=== PATIENT | female | born 1940 | race Caucasian/White ===

== ENCOUNTER 2017-05-15 09:59 | Emergency (ER) | payer OTHER ==
[2017-05-15 10:05] VITALS: BMI 20.7
[2017-05-15 10:35] LABS: BASOPHILS % (AUTO) 0.5 % (0.2-1.0); EOSINOPHILS # (AUTO) 0.1 x10^3/uL (0.0-0.2); EOSINOPHILS % (AUTO) 1.2 % (0.9-2.9); HEMATOCRIT 34.3 % (36.0-47.0); HEMOGLOBIN 11.5 g/dL (12.0-16.0); LYMPHOCYTES # (AUTO) 0.9 X10^3/uL (1.3-2.9); LYMPHOCYTES % (AUTO) 10.6 % (21.0-51.0); MEAN CORPUSCULAR HEMOGLOBIN 29.8 pg (27.0-34.0); MEAN CORPUSCULAR HGB CONC 33.7 g/dL (33.0-35.0); MEAN CORPUSCULAR VOLUME 88.6 fL (80.0-100.0); MEAN PLATELET VOLUME 9.3 fL (7.4-11.0); MONOCYTES # (AUTO) 0.6 x10^3/uL (0.3-0.8); MONOCYTES % (AUTO) 6.6 % (0.0-13.0); NEUTROPHILS # (AUTO) 7.1 x10^3/uL (2.2-4.8); NEUTROPHILS % (AUTO) 81.1 % (42.0-75.0); PLATELET COUNT 180 X10^3/uL (150.0-450.0); RED BLOOD COUNT 3.86 X10^6/uL (3.5-5.4); RED CELL DISTRIBUTION WIDTH 13.4 % (11.6-16.5); WHITE BLOOD COUNT 8.7 X10^3/uL (3.6-10.0)
[2017-05-15 10:43] LABS: ALANINE AMINOTRANSFERASE 8 Units/L (12-78); ALBUMIN 3.4 g/dL (3.4-5.0); ALKALINE PHOSPHATASE 62 Units/L (46-116); ASPARTATE AMINO TRANSFERASE 18 Units/L (15-37); BLOOD UREA NITROGEN 22 mg/dL (7-18); CALCIUM 8.8 mg/dL (8.5-10.1); CHLORIDE 104 mmol/L (98-107); COR NA(FOR HYPERGLY) 140 mmol/L (136-145); CREATININE 1.29 mg/dL (0.55-1.02); GLUCOSE 115 mg/dL (65-99); SODIUM 140 mmol/L (136-145); eGFR BLACK RACES 52 (>60); eGFR NON BLACK RACES 43 (>60)
--- NOTE | 2017-05-15 10:43 | DR.GENAD ---
HPI - PCP Primary Care Physician: DR. MCCRAY - Complaint/Symptoms Chief Complaint Doctors Comments: Right sided chest and abdominal pain after falling 2-3 times over the last 4 days. Chief Complaint:: EMS STATED THAT FAMILY CALLED THEM OUT TO PATIENT HAVING RIGHT LOWER ABD. PAIN. SHE HAS BEEN HAVING MULT. FALLS OVER THE LAST COUPLE OF DAYS AND HAVING BRUISING NOTED TO THE FACE AND SKIN TEARS NOTED OT ARMS. - Nurses notes reviewed Nurses Notes Review: Yes - Source History Provided: Family Member (Son, who sitas with her at night and witnessed 2 of her falls), EMS - Mode of Arrival Mode of Arrival: Stretcher - Timing Onset of Chief Complaint: 05/13/17 Came on: Gradually - Duration Duration: Intermittent Duration: Days (2-3 days) - Location Location: R chest wall and abdomen - Severity Severity: Moderate PMH - PMH Past Medical History: Yes Past Medical History: Dementia, Hypertension Past Medical History Comment: PARKINSON Past Surgical History: No Surgical History: No History Unable to Obtain Due To: Dementia - Family History History of Family Medical Conditions: Yes Family Medical History: Diabetes Mellitus, Cancer, Hypertension - Social History Does patient currently use any type of tobacco product: No Have you used tobacco products in the last 12 months: No Type of Tobacco Use: None Does any household member use tobacco: No Alcohol Use: None Do you use any recreational Drugs:: No Lives With: Family Lives Where: Home - infectious screening In the last 2 months have you had wt loss of >10#?: NO Have you had fever, night sweats or hemotysis?: No Have you traveled outside the country in the last 6 months?: No Isolation: Standard ROS - Review of Systems Eyes: No Symptoms Reported ENTM: No Symptoms Reported Respiratoy: No Symptoms Reported Cardiovascular: No Symptoms Reported, Chest Pain Gastrointestinal/Abdominal: Abdominal Pain Genitourinary: No Symptoms Reported Neurological: No Symptoms Reported Musculoskeletal: No Symptoms Reported Integumentary: Other (R arm skin tear after fall and nose contusion at the bridge after fall #2) Endocrine: No Symptoms Reported Psychiatric: Other (dementia) PE - Vital Signs Vitals: Temperature 98.0 F Pulse Rate [Left Brachial] 68 Pulse Rate 77 Respiratory Rate 20 Blood Pressure [Left Arm] 126/69 Blood Pressure 126/56 O2 Sat by Pulse Oximetry 96 - General Limitations: Other (dementia/med effect(xanax)) General Appearance: Alert, In No Apparent Distress - Head Head Exam: Other (contusion and edema of the bridge of the nose) - Eyes Eye exam: Normal Appearance - ENT ENT Exam: Normal Exam Nose Exam: Abrasion Mouth Exam: Normal Inspection Throat Exam: Normal Inspection - Chest Chest Inspection: Normal Inspection, Symmetric Chest Wall Rise - Respiratory Respiratory Exam: Normal Lung Sounds Bilat - Cardiovascular Cardiovascular Exam: Regular Rate, Normal Rhythm, Normal Heart Sounds - Abdominal Exam Abdominal Exam: Normal Inspection, Normal Bowel Sounds, Soft. negative: Distention, Tenderness, Guarding, Rebound, Rigidity, Hypoactive Bowel Sounds, Organomegaly, Trauma, Incision, Ascites, Mass, Bruit, Pulsatile Mass - Extremities Extremities Exam: Normal Inspection - Back Back Exam: Normal Inspection - Neurologic Neurological Exam: Alert, CN II-XII Intact. negative: Oriented X3 - Skin Skin Exam: Other (skin tears and contusions) ROR - Labs Reviewed Result Diagrams: 05/15/17 10:24 05/15/17 10:24 Laboratory: WBC 8.7 X10^3/uL (3.6-10.0) 05/15/17 10:24 RBC 3.86 X10^6/uL (3.5-5.4) 05/15/17 10:24 Hgb 11.5 g/dL (12.0-16.0) L 05/15/17 10:24 Hct 34.3 % (36.0-47.0) L 05/15/17 10:24 MCV 88.6 fL (80.0-100.0) 05/15/17 10:24 MCH 29.8 pg (27.0-34.0) 05/15/17 10:24 MCHC 33.7 g/dL (33.0-35.0) 05/15/17 10:24 RDW 13.4 % (11.6-16.5) 05/15/17 10:24 Plt Count 180 X10^3/uL (150.0-450.0) 05/15/17 10:24 MPV 9.3 fL (7.4-11.0) 05/15/17 10:24 Neut % 81.1 % (42.0-75.0) H 05/15/17 10:24 Lymph % 10.6 % (21.0-51.0) L 05/15/17 10:24 [place] % 6.6 % (0.0-13.0) 05/15/17 10:24 Eos % 1.2 % (0.9-2.9) 05/15/17 10:24 Baso % 0.5 % (0.2-1.0) 05/15/17 10:24 Neut # 7.1 x10^3/uL (2.2-4.8) H 05/15/17 10:24 Lymph # 0.9 X10^3/uL (1.3-2.9) L 05/15/17 10:24 [place] # 0.6 x10^3/uL (0.3-0.8) 05/15/17 10:24 Eos # 0.1 x10^3/uL (0.0-0.2) 05/15/17 10:24 Baso # 0.0 X10^3/uL (0.0-0.1) 05/15/17 10:24 Absolute Nucleated RBC 0.0 /100WBC 05/15/17 10:24 Sodium 140 mmol/L (136-145) 05/15/17 10:24 Corrected Sodium 140 mmol/L (136-145) 05/15/17 10:24 Potassium 3.9 mmol/L (3.5-5.1) 05/15/17 10:24 Chloride 104 mmol/L (98-107) 05/15/17 10:24 Carbon Dioxide 32.0 mmol/L (21-32) 05/15/17 10:24 BUN 22 mg/dL (7-18) H 05/15/17 10:24 Creatinine 1.29 mg/dL (0.55-1.02) H 05/15/17 10:24 Est GFR (MDRD) Af Amer 52 (>60) L 05/15/17 10:24 Est GFR (MDRD) Non-Af 43 (>60) L 05/15/17 10:24 Glucose 115 mg/dL (65-99) H 05/15/17 10:24 Calcium 8.8 mg/dL (8.5-10.1) 05/15/17 10:24 Corrected Calcium TNP 05/15/17 10:24 Total Bilirubin 0.60 mg/dL (0.2-1.0) 05/15/17 10:24 AST 18 Units/L (15-37) 05/15/17 10:24 ALT 8 Units/L (12-78) L 05/15/17 10:24 Alkaline Phosphatase 62 Units/L (46-116) 05/15/17 10:24 Total Protein 7.0 g/dL (6.4-8.2) 05/15/17 10:24 Albumin 3.4 g/dL (3.4-5.0) 05/15/17 10:24 Globulin 3.6 g/dL (2.5-4.5) 05/15/17 10:24 Albumin/Globulin Ratio 0.9 Ratio (1.1-2.1) L 05/15/17 10:24 Specimen Type Clean catch urine 05/15/17 11:53 Urine Color Yellow (YELLOW) 05/15/17 11:53 Urine Appearance Hazy (CLEAR) 05/15/17 11:53 Urine pH 6.0 (5.0 - 8.0) 05/15/17 11:53 Ur Specific [place] 1.015 (1.000-1.030) 05/15/17 11:53 Urine Protein 2+ (NEGATIVE) 05/15/17 11:53 Urine Glucose (UA) Negative (NEGATIVE) 05/15/17 11:53 Urine Ketones 1+ (NEGATIVE) 05/15/17 11:53 Urine Occult Blood 2+ (NEGATIVE) 05/15/17 11:53 Urine Nitrite Negative (NEGATIVE) 05/15/17 11:53 Urine Bilirubin Negative (NEGATIVE) 05/15/17 11:53 Urine Urobilinogen 1+ (NORMAL) 05/15/17 11:53 Ur Leukocyte Esterase 2+ (NEGATIVE) 05/15/17 11:53 Urine RBC 0-2 /HPF (NEGATIVE) 05/15/17 11:53 Urine WBC 5-6 /HPF (NEGATIVE) 05/15/17 11:53 Ur Squamous Epith Cells Rare /HPF (NEGATIVE) 05/15/17 11:53 Urine Bacteria Trace /HPF (NEGATIVE) 05/15/17 11:53 Ur Culture Indicated? No/not indicated 05/15/17 11:53 - Diagnosis Discharge Problem: Fall, Skin tear, Nasal contusion, Flank pain, Cystitis - Discharge Plan Condition: Stable Prescriptions: Ampicillin Trihydrate 500 mg PO QID #28 capsule - Follow ups/Referrals Follow ups/Referrals: Chalino Mccray [Primary Care Provider] - 3 days - Instructions Additional Instructions: Fall precautions.
--- NOTE | 2017-05-15 10:51 | CT ---
STUDY: CT HEAD WITHOUT CONTRAST HISTORY: Fall. Facial bruising. COMPARISON: Head CT dated September 06, 2016. TECHNIQUE: Multiple axial images of the head were obtained from the skull base to the vertex without administration of IV contrast. Automated exposure control (AEC) was utilized to adjust the MA and/o r kV. Findings: The sulci, cisterns and ventricles are prominent consistent with diffuse volume loss. There are scattered foci of low attenuation in the periventricular and subcortical white matter of b oth hemispheres. This is a nonspecific finding which likely represents microangiopathic change in a patient of this age. There is no evidence of acute territorial infarction, hemorrhage, mass, mass effect or midline shift . There are no abnormal extra-axial fluid collections. There is no evidence of acute osseous abnormality or significant soft tissue swelling. IMPRESSION: 1. No evidence of acute intracranial abnormality. 2. Nonspecific white matter change and volume loss as described. 3. If there remains strong clinical concern for acute intracranial abnormality, then an MRI examinat ion should be considered for further evaluation. Reported By:
--- NOTE | 2017-05-15 10:52 | CT ---
HISTORY: Fall. Study: CT facial bones Comparison: None. Technique: Multiple axial images of the facial structures were obtained from the mandible to superio r portions of the orbits. Dose reduction techniques including Automated Exposure Control (AEC) and adjustment of mA and kV were utilized. Findings: Nasal bone fractures that appear remote. The visualized paranasal sinuses appear unremarkable withou t significant mucosal thickening or air-fluid levels. The mandible as well as the surrounding bony structures appear unremarkable. The visualized portions of the orbits as well as the globe within t he right and left orbit are unremarkable in their CT appearance. IMPRESSION: No acute osseous abnormality. Reported By:
--- NOTE | 2017-05-15 11:22 | CT ---
HISTORY: Injury, fall, rib pain Study: CT chest abdomen pelvis without contrast Comparison: None Technique: Axial non contrast images with coronal and sagittal reformats. Dose reduction procedures were used with MA/kv adjusted for body size. This examination is limited due to the lack of intraven ous contrast which limits the evaluation of the aorta, solid abdominal organs, and evaluation for ac tive hemorrhage. Findings: CT chest without contrast:: Examination of the mediastinum demonstrated no evidence for mediastinal hematoma. Evaluation of the aorta is limited due to the lack of intravenous contrast. Mild calcific atherosclerotic changes present. No mediastinal masses, lymphadenopathy, or hilar lymphadenopathy is identified. A small right pleural effusion is present. No chest wall or axillary abnormality is elpidio ntified. The ribs appear intact as does the thoracic spine and sternum. Examination of the lung fiel ds demonstrated no evidence for pulmonary contusion or pneumothorax. There is some subsegmental atel ectasis in the right upper lobe. No significant nodules, alveolar infiltrates, masses, peribronchial thickening, or bronchiectasis is identified. CT abdomen pelvis without contrast: The liver, spleen, adrenal glands, and pancreas are within raisa l limits to the limitations of an unenhanced examination only. The gallbladder is mildly distended. Cholelithiasis is present. Benign calcified splenic granulomas are incidentally noted. The kidneys a re unobstructed and demonstrate no evidence for injury to the limitations of an unenhanced examinati on. No stones are identified no ureteral calculi are identified. There is no evidence for intraperit morgan air. The abdominal aorta demonstrates mild calcific atherosclerotic change but no dilatation. No intraperitoneal or retroperitoneal lymphadenopathy of significance is identified. The appendix an d colon appear within normal limits. There is no evidence for small bowel wall edema. There is some fluid of low attenuation within the right side of the pelvis. This could be physiologic however clin ical correlation is recommended in order to exclude findings that might be suggestive of a bowel inj ury. The bladder appears intact. No pelvic masses are identified. No pelvic fractures are identified . The lumbar spine appears intact. IMPRESSION: Limited examination for the reason noted above No definite evidence for acute traumatic abnormality in the chest to the limitations of an unenhance d examination. No definite evidence for solid organ injury in the abdomen to the limitations of an unenhanced exami nation. Small amount of low attenuation fluid in the right hemipelvis likely physiologic, however, clinical correlation is recommended in order to exclude clinical findings suggestive of a bowel injury. Reported By:
[2017-05-15] MEDS ORDERED: NS 1/2 1000 ML IV 500 ML IV ONE (11:34)
[2017-05-15] MEDS ORDERED: NS 1/2 1000 ML IV 1,000 ML IV ONE (11:46)
[2017-05-15 12:02] LABS: BILIRUBIN,URINE NEGATIVE (NEGATIVE); BLOOD/HEMOGLOBIN,URINE 2+ (NEGATIVE); GLUCOSE, URINE NEGATIVE (NEGATIVE); KETONES,URINE 1+ (NEGATIVE); LEUKOCYTE ESTERASE ,URINE 2+ (NEGATIVE); NITRITES,URINE NEGATIVE (NEGATIVE); PROTEIN,URINE 2+ (NEGATIVE); UROBILINOGEN,URINE 1+ (NORMAL)
[2017-05-15 12:10] LABS: APPEARANCE,URINE HAZY (CLEAR); BACTERIA,URINE TRACE /HPF (NEGATIVE); COLOR,URINE YELLOW (YELLOW); RBC,URINE 0-2 /HPF (NEGATIVE); SQUAMOUS EPITHELIAL CELL,UR RARE /HPF (NEGATIVE)
[2017-05-15 12:15] VITALS: BP 126/69
[2017-05-15] MEDS ORDERED: ROCEPHIN VIAL 1 GM 1 GM in NS 50 ML IV + SPIKE MINIBAG* 50 ML IV ONE (12:22)
[2017-05-15] MEDS ORDERED: NS 50 ML IV + SPIKE MINIBAG* 50 ML IV ONE (12:24)
[2017-05-15] MEDS ORDERED: ROCEPHIN VIAL 1 GM ONE (12:24)
== END 2017-05-15 13:15 | disposition home or self-care (01) ==
LOC: ER 10:02
DX: S41.111A Laceration without foreign body of right upper arm, initial encounter (principal); S00.33XA Contusion of nose, initial encounter; R10.84 Generalized abdominal pain; N30.90 Cystitis, unspecified without hematuria; W19.XXXA Unspecified fall, initial encounter
CPT/HCPCS: 36415; 51701; 70450; 70486; 71250; 74150; 80053; 81001; 85025; 96365; 96374; 99282; 99283; A4222; J0696

== ENCOUNTER 2019-11-25 10:09 | Inpatient (IN) ==
[2019-11-25 10:21] VITALS: BMI 25.4
--- NOTE | 2019-11-25 10:50 | DR.URINEF ---
HPI - Time Seen Time seen: 10:45 - PCP Primary Care Physician: DR. MCCRAY - Complaint Chief Complaint:: FAMILY STATES THEY THINK SHE HAS A BLADDER INFECTION OR UTI. STATES HER URINE HAS A RED TINT TO IT AND THERE IS AN ODOR TO HER URINE. STATES 2 DAYS AGO PATIENT WAS LEANING TO ONE SIDE AND WASN'T HARDLY SPEAKING. STATES SHE IS DOING BETTER TODAY. FAMILY STATES PT SHE IS COMPLAINING OF PAIN ON HER LEFT LOWER SIDE OF HER BACK. SHE HAS BEEN MORE LETHERGIC THE LAST FEW DAYS AND NOT EATING WELL. - Reviewed Nurses Notes Reviewed: Yes - Source History Provided: Patient - Mode of Arrival Mode of Arrival: Wheelchair - Timing Onset of Chief Complaint: 11/22/19 - Duration How lon Duration: Days (mORE LEFTHARGIC, DARK URINE) PMH - PMH Past Medical History: Yes Past Medical History: Hypertension, Dementia Past Medical History Comment: PARKINSON'S Past Surgical History: No Surgical History: No History - Family History History of Family Medical Conditions: Yes Family Medical History: Diabetes Mellitus, Cancer, Hypertension - Social History Does patient currently use any type of tobacco product: No Have you used tobacco products in the last 12 months: No Type of Tobacco Use: None Does any household member use tobacco: No Alcohol Use: None Do you use any recreational Drugs:: No Lives With: Family Lives Where: Home - infectious screening Have you traveled outside the country in the last 6 months?: No Isolation: Standard ROS - Review of Systems Constitutional: Weakness ENTM: Tooth/Dental Pain (POOR DENTITION) Respiratoy: No Symptoms Reported Cardiovascular: No Symptoms Reported Gastrointestinal/Abdominal: No Symptoms Reported Genitourinary: Other (DARK ODIFEROUS URINE) Neurological: Weakness, Speech Problem (CHRONIC ON SPEECH THERAPY) PE - General General Appearance: Lethargic - Head Head Exam: Normal Inspection - Eyes Eye exam: Normal Appearance, EOMI - ENT ENT Exam: Other (POOR DENTITION ONLY FEW TEETH REMAIN) - Neck Neck Exam: Normal Inspection, Full ROM, Trachea Midline - Respiratory Respiratory Exam: Normal Lung Sounds Bilat - Cardiovascular Cardiovascular Exam: Regular Rate - Abdominal Exam Abdominal Exam: Normal Inspection, Normal Bowel Sounds, Soft - Rectal Rectal Exam: Deferred - Extremities Extremities Exam: Normal Inspection - Back Back Exam: Normal Inspection - Neurologic Neurological Exam: Alert, Oriented X3, CN II-XII Intact - Psychiatric Psychiatric Exam: Depressed - Skin Skin Exam: Intact, Normal Color - Vital Signs Vitals: Temperature 97.4 F Pulse Rate 74 Respiratory Rate 16 Blood Pressure [Left Arm] 118/67 Blood Pressure 88/49 O2 Sat by Pulse Oximetry 96 Course - Consultation Called: 12:55 Call Returned: 13:10 Consultation Comments: case discussed with Cheri Penny NE[facility] BLOWER, admit for antibiotics ROR - Labs Reviewed Result Diagrams: 11/25/19 11:02 11/25/19 17:09 - XRAY XRAY Interpreted by: Radiologist XRAY Findings: chest: scarring present , no change from previous CT scan per radiology - Labs Reviewed Laboratory: WBC 15.0 X10^3/uL (3.6-10.0) H 11/25/19 11:02 RBC 3.72 X10^6/uL (3.5-5.4) 11/25/19 11:02 Hgb 11.4 g/dL (12.0-16.0) L 11/25/19 11:02 Hct 34.1 % (36.0-47.0) L 11/25/19 11:02 MCV 91.7 fL (80.0-100.0) 11/25/19 11:02 MCH 30.8 pg (27.0-34.0) 11/25/19 11:02 MCHC 33.6 g/dL (33.0-35.0) 11/25/19 11:02 RDW 12.7 % (11.6-16.5) 11/25/19 11:02 Plt Count 193 X10^3/uL (150.0-450.0) 11/25/19 11:02 MPV 9.0 fL (7.4-11.0) 11/25/19 11:02 Neut % (Auto) 82.6 % (42.0-75.0) H 11/25/19 11:02 Lymph % (Auto) 10.1 % (21.0-51.0) L 11/25/19 11:02 [place] % (Auto) 6.3 % (0.0-13.0) 11/25/19 11:02 Eos % (Auto) 0.7 % (0.9-2.9) L 11/25/19 11:02 Baso % (Auto) 0.3 % (0.2-1.0) 11/25/19 11:02 Neut # (Auto) 12.4 x10^3/uL (2.2-4.8) H 11/25/19 11:02 Lymph # (Auto) 1.5 X10^3/uL (1.3-2.9) 11/25/19 11:02 [place] # (Auto) 0.9 x10^3/uL (0.3-0.8) H 11/25/19 11:02 Eos # (Auto) 0.1 x10^3/uL (0.0-0.2) 11/25/19 11:02 Baso # (Auto) 0.1 X10^3/uL (0.0-0.1) 11/25/19 11:02 Absolute Nucleated RBC 0.0 /100WBC 11/25/19 11:02 Sodium 145 mmol/L (136-145) 11/25/19 11:02 Corrected Sodium 146 mmol/L (136-145) H 11/25/19 11:02 Potassium 3.0 mmol/L (3.5-5.1) L* 11/25/19 11:02 Chloride 108 mmol/L (98-107) H 11/25/19 11:02 Carbon Dioxide 27.6 mmol/L (21-32) 11/25/19 11:02 BUN 28 mg/dL (7-18) H 11/25/19 11:02 Creatinine 1.34 mg/dL (0.55-1.02) H 11/25/19 11:02 Est GFR (MDRD) Af Amer 49 (>60) L 11/25/19 11:02 Est GFR (MDRD) Non-Af 41 (>60) L 11/25/19 11:02 Glucose 134 mg/dL (65-99) H 11/25/19 11:02 Lactic Acid 0.9 mmol/L (0.4-2.0) 11/25/19 12:05 Calcium 9.4 mg/dL (8.5-10.1) 11/25/19 11:02 Corrected Calcium TNP 11/25/19 11:02 Total Bilirubin 0.30 mg/dL (0.2-1.0) 11/25/19 11:02 AST 32 Units/L (15-37) 11/25/19 11:02 ALT 23 Units/L (12-78) 11/25/19 11:02 Alkaline Phosphatase 67 Units/L (46-116) 11/25/19 11:02 Total Protein 7.2 g/dL (6.4-8.2) 11/25/19 11:02 Albumin 3.6 g/dL (3.4-5.0) 11/25/19 11:02 Globulin 3.6 g/dL (2.5-4.5) 11/25/19 11:02 Albumin/Globulin Ratio 1.0 Ratio (1.1-2.1) L 11/25/19 11:02 Specimen Type Catherized urine 11/25/19 11:24 Urine Color Yellow (YELLOW) 11/25/19 11:24 Urine Appearance Cloudy (CLEAR) 11/25/19 11:24 Urine pH 6.0 (5.0 - 8.0) 11/25/19 11:24 Ur Specific [place] 1.015 (1.000-1.030) 11/25/19 11:24 Urine Protein 2+ (NEGATIVE) 11/25/19 11:24 Urine Glucose (UA) Negative (NEGATIVE) 11/25/19 11:24 Urine Ketones Negative (NEGATIVE) 11/25/19 11:24 Urine Occult Blood 4+ (NEGATIVE) 11/25/19 11:24 Urine Nitrite Negative (NEGATIVE) 11/25/19 11:24 Urine Bilirubin Negative (NEGATIVE) 11/25/19 11:24 Urine Urobilinogen Normal (NORMAL) 11/25/19 11:24 Ur Leukocyte Esterase 3+ (NEGATIVE) 11/25/19 11:24 Urine RBC 20-30 /HPF (0-3) A 11/25/19 11:24 Urine WBC Tntc /HPF (0-5) A 11/25/19 11:24 Ur Squamous Epith Cells Few /HPF (NEGATIVE) 11/25/19 11:24 Urine Bacteria 2+ /HPF (NEGATIVE) 11/25/19 11:24 Ur Culture Indicated? Yes/culture set up 11/25/19 11:24 Opioid - Opioid Risk Tool Age (Mohsen box if 16-45): No Total: 0 Total Score Risk Category: Low Risk - Diagnosis Discharge Problem: Hypokalemia Urinary tract infection Qualifiers: Urinary tract infection type: acute cystitis Hematuria presence: with hematuria Qualified Code(s): N30.01 - Acute cystitis with hematuria - Discharge Plan Disposition: ADMITTED INPATIENT Condition: Stable
[2019-11-25] MEDS ORDERED: NS 500 ML IV 1,000 ML IV ONE (10:52)
[2019-11-25] MEDS ORDERED: NS 500 ML IV 500 ML IV ONE ×2 (10:54→11:37)
[2019-11-25 11:11] LABS: BASOPHILS # (AUTO) 0.1 X10^3/uL (0.0-0.1); BASOPHILS % (AUTO) 0.3 % (0.2-1.0); EOSINOPHILS # (AUTO) 0.1 x10^3/uL (0.0-0.2); EOSINOPHILS % (AUTO) 0.7 % (0.9-2.9); HEMATOCRIT 34.1 % (36.0-47.0); HEMOGLOBIN 11.4 g/dL (12.0-16.0); LYMPHOCYTES # (AUTO) 1.5 X10^3/uL (1.3-2.9); LYMPHOCYTES % (AUTO) 10.1 % (21.0-51.0); MEAN CORPUSCULAR HEMOGLOBIN 30.8 pg (27.0-34.0); MEAN CORPUSCULAR HGB CONC 33.6 g/dL (33.0-35.0); MEAN CORPUSCULAR VOLUME 91.7 fL (80.0-100.0); MONOCYTES # (AUTO) 0.9 x10^3/uL (0.3-0.8); MONOCYTES % (AUTO) 6.3 % (0.0-13.0); NEUTROPHILS # (AUTO) 12.4 x10^3/uL (2.2-4.8); NEUTROPHILS % (AUTO) 82.6 % (42.0-75.0); PLATELET COUNT 193 X10^3/uL (150.0-450.0); RED BLOOD COUNT 3.72 X10^6/uL (3.5-5.4); RED CELL DISTRIBUTION WIDTH 12.7 % (11.6-16.5)
[2019-11-25 11:21] LABS: BLOOD UREA NITROGEN 28 mg/dL (7-18); CALCIUM 9.4 mg/dL (8.5-10.1); CARBON DIOXIDE 27.6 mmol/L (21-32); CHLORIDE 108 mmol/L (98-107); COR NA(FOR HYPERGLY) 146 mmol/L (136-145); CREATININE 1.34 mg/dL (0.55-1.02); SODIUM 145 mmol/L (136-145); eGFR NON BLACK RACES 41 (>60)
[2019-11-25 11:25] LABS: ALANINE AMINOTRANSFERASE 23 Units/L (12-78); ALBUMIN 3.6 g/dL (3.4-5.0); ALKALINE PHOSPHATASE 67 Units/L (46-116); ASPARTATE AMINO TRANSFERASE 32 Units/L (15-37); TOTAL PROTEIN 7.2 g/dL (6.4-8.2)
[2019-11-25 11:41] LABS: BILIRUBIN,URINE NEGATIVE (NEGATIVE); BLOOD/HEMOGLOBIN,URINE 4+ (NEGATIVE); GLUCOSE, URINE NEGATIVE (NEGATIVE); KETONES,URINE NEGATIVE (NEGATIVE); LEUKOCYTE ESTERASE ,URINE 3+ (NEGATIVE); NITRITES,URINE NEGATIVE (NEGATIVE); PROTEIN,URINE 2+ (NEGATIVE); UROBILINOGEN,URINE NORMAL (NORMAL)
[2019-11-25 11:49] LABS: APPEARANCE,URINE CLOUDY (CLEAR); BACTERIA,URINE 2+ /HPF (NEGATIVE); COLOR,URINE YELLOW (YELLOW); RBC,URINE 20-30 /HPF (0-3); SQUAMOUS EPITHELIAL CELL,UR FEW /HPF (NEGATIVE)
[2019-11-25] MEDS ORDERED: POTASSIUM CHLORIDE LIQ 20 MEQ UDC PO ONE (11:49)
--- NOTE | 2019-11-25 11:54 | RAD ---
HISTORYCOUGHSTUDYCHEST, 1 VIEWCOMPARISONCT scan of the chest done 05/15/2017.FINDINGSThere is left right tracheal deviation secondary to aortic uncoiling. The heart size is upper normal. Left lung is clear. There is chronic thickening of the region of the right minor fissure, noted on the prior CT. Some scarring in the right lower lobe is appreciated along this region. No evidence of consolidation, CHF, pleural fluid or pneumothorax is seen. Osseous structures are intact.IMPRESSIONStable scarring along the right minor fissure in right lower lobe regions, unchanged from the prior chest CT. No evidence of acute infiltrate, CHF or pleural fluid is seen.Hypertensive configuration.Electronically signed by: JOE CORTEZ (Nov 25, 2019 11:52:20)
[2019-11-25] MEDS ORDERED: POTASSIUM CHLORIDE LIQ 20 MEQ UDC ONE (12:30)
[2019-11-25] MEDS ORDERED: LEVAQUIN PREMIX IV 750 MG 750 MG/150 ML BAG IV ONE (12:31)
[2019-11-25] MEDS: LEVAQUIN PREMIX IV 750 MG 750 MG/150 ML BAG IV SCH (12:35)
[2019-11-25] MEDS ORDERED: TYLENOL 500 MG TAB EXTRA STRENGTH PO PRN (13:21)
[2019-11-25] MEDS ORDERED: NS 1000 ML 1,000 ML ONE (14:32)
[2019-11-25] MEDS: NS 1000 ML 1,000 ML IV SCH ×2 (14:36→21:41)
[2019-11-25 18:38] LABS: CRYPTOSPORIDIUM PARVUM ANTIGEN NEGATIVE (NEGATIVE); GIARDIA LAMBLIA ANTIGEN NEGATIVE (NEGATIVE)
[2019-11-25] MEDS: K-DUR TAB 20 MEQ PO SCH (21:41)
[2019-11-26 05:33] LABS: BASOPHILS % (AUTO) 0.3 % (0.2-1.0); EOSINOPHILS # (AUTO) 0.1 x10^3/uL (0.0-0.2); HEMATOCRIT 26.9 % (36.0-47.0); LYMPHOCYTES # (AUTO) 1.8 X10^3/uL (1.3-2.9); LYMPHOCYTES % (AUTO) 19.1 % (21.0-51.0); MEAN CORPUSCULAR HEMOGLOBIN 32.3 pg (27.0-34.0); MEAN CORPUSCULAR HGB CONC 34.9 g/dL (33.0-35.0); MEAN CORPUSCULAR VOLUME 92.5 fL (80.0-100.0); MEAN PLATELET VOLUME 9.7 fL (7.4-11.0); MONOCYTES # (AUTO) 0.6 x10^3/uL (0.3-0.8); MONOCYTES % (AUTO) 6.7 % (0.0-13.0); NEUTROPHILS # (AUTO) 6.8 x10^3/uL (2.2-4.8); NEUTROPHILS % (AUTO) 72.9 % (42.0-75.0); PLATELET COUNT 149 X10^3/uL (150.0-450.0); RED BLOOD COUNT 2.91 X10^6/uL (3.5-5.4); RED CELL DISTRIBUTION WIDTH 13.2 % (11.6-16.5); WHITE BLOOD COUNT 9.4 X10^3/uL (3.6-10.0)
[2019-11-26 05:36] LABS: ALANINE AMINOTRANSFERASE 24 Units/L (12-78); ALBUMIN 2.8 g/dL (3.4-5.0); ALKALINE PHOSPHATASE 52 Units/L (46-116); ASPARTATE AMINO TRANSFERASE 23 Units/L (15-37); BLOOD UREA NITROGEN 21 mg/dL (7-18); CALCIUM 8.2 mg/dL (8.5-10.1); CARBON DIOXIDE 24.1 mmol/L (21-32); CHLORIDE 111 mmol/L (98-107); COR CA(FOR HYPOALB) 9.2 mg/dL (8.5-10.1); SODIUM 144 mmol/L (136-145); TOTAL PROTEIN 5.8 g/dL (6.4-8.2); eGFR NON BLACK RACES 57 (>60)
[2019-11-26 05:51] LABS: HEMOGLOBIN 9.4 g/dL (12.0-16.0)
[2019-11-26] MEDS: NS 1000 ML 1,000 ML IV SCH ×3 (06:28→21:29)
[2019-11-26] MEDS ORDERED: POTASSIUM CHL 40 MEQ/NS 0.45% 500 ML IV PRN (06:31)
[2019-11-26] MEDS ORDERED: POTASSIUM CHLORIDE LIQ 20 MEQ UDC PO PRN (06:31)
[2019-11-26] MEDS ORDERED: KLOR-CON PO PRN (06:31)
[2019-11-26] MEDS ORDERED: MICRO K EXTEN CAP 10 MEQ PO PRN (06:31)
[2019-11-26] MEDS ORDERED: K-RIDER 10 MEQ/NS 100 ML 10 MEQ/100 ML BAG IV PRN (06:31)
[2019-11-26] MEDS ORDERED: POTASSIUM CHL 60 MEQ/NS 0.45% 500 ML IV PRN (06:31)
[2019-11-26] MEDS ORDERED: K-DUR TAB 20 MEQ PO PRN (06:31)
--- NOTE | 2019-11-26 08:30 | DR.H&P ---
H&P - History & Physical for Day of: H&P Date: 11/25/19 - Chief Complaint Chief Complaint: DARK, FOUL SMELLING URINE, BACK PAIN, WELL DIARRHEA - History of Present Illness History of Present Illness: MS. GROVES IS A 79 YEAR OLD PATIENT OF OURS WHO PRESENTED TO THE ER WITH COMPLAINTS OF DARK, FOUL SMELLING URINE, LEFT SIDE LOWER BACK PAIN, AND DIARRHEA. FAMILY REPORTS THAT SHE HAS BEEN LETHARGIC FOR THE PAST TWO DAYS AND HAS NOT BEEN EATING. ON ARRIVAL, VITALS WERE 97.4-97-16-100%-93/54. LABS WERE OBTAINED. ABNORMAL LAB VALUES INCLUDE THE FOLLOWING: WBC 15.0, HGB 11.4, HCT 34.1, SODIUM 146, POTASSIUM 3.0, CHLORIDE 108, BUN 28, CREATININE 1.34, GLUCOSE 134. URINALYSIS REVEALED: WBC TNTC, RBC 20-30, LEUKOCYTES 3+, BACTERIA 2+. STOOL IS POSITIVE FOR WHITE CELLS. A STOOL CULTURE AND URINE CULTURE PENDING. A CHEST XRAY WAS OBTAINED AND REVEALED: Stable scarring along the right minor fissure in right lower lobe regions, unchanged from the prior chest CT. No evidence of acute infiltrate, CHF or pleural fluid is seen. Hypertensive configuration. SHE WAS GIVEN A NORMAL SALINE BOLUS AND POTASSIUM 20MEQ X 1 DOSE. SHE WAS ADMITTED FOR FURTHER EVALUATION AND TREATMENT OF A URINARY TRACT INFECTION AND HYPOKALEMIA. SHE WAS STARTED ON NORMAL SALINE AT 125ML/HR, LEVAQUIN 750MG IV DAILY, AND THE POTASSIUM AND MAGNESIUM PROTOCOLS. WE PLAN TO FOLLOW UP WITH AM LABS AND CONTINUE TO MONITOR. - Past Medical History Past Medical History: Hypertension, Dementia - Past Surgical History Surgical History: No History - Family History Family Medical History: Diabetes Mellitus, Cancer, Hypertension - Social History Does patient currently use any type of tobacco product: No Have you used tobacco products in the last 12 months: No Type of Tobacco Use: None Does any household member use tobacco: No Alcohol Use: None Drug Use: None Prescription drug monitoring program results: PDMP was not reviewed - Medications Home Medications: INK Allergy (Uncoded 07/02/15 09:16) CONTINUE taking the following medications carbidopa-levodopa [Sinemet] 1 tab PO BID 11/25/19 [History] fluoxetine 20 mg PO QAM 11/25/19 [History] levothyroxine 50 mcg PO DAILY 01/16/20 [History] lisinopril-hydrochlorothiazide 1 tab PO DAILY 11/25/19 [History] megestrol 600 mg PO BID 11/25/19 [History] pravastatin 40 mg PO QHS 11/25/19 [History] ranitidine HCl 300 mg PO QHS 11/25/19 [History] temazepam [Restoril] 15 mg PO QHS PRN 11/25/19 [History] - Review of Systems Constitutional: See HPI, Weakness, Malaise Eyes: No Symptoms Reported ENT: No Symptoms Reported Respiratory: No Symptoms Reported Cardiovascular: No Symptoms Reported Gastrointestinal: Abdominal Pain Genitourinary: No Symptoms Reported Musculoskeletal: No Symptoms Reported Skin: No Symptoms Reported Neurological: Weakness, Confusion - Physical Exam Vital Signs: Temperature 98.9 F Pulse Rate [Left Radial] 81 Pulse Rate 96 Respiratory Rate 22 Blood Pressure [Left Arm] 122/58 Blood Pressure 94/52 O2 Sat by Pulse Oximetry 97 Oriented: Not Oriented Eyes: Normal Ear: Normal Nose: Normal Throat: Normal Respiratory: Diminished Throughout Cardiovascular: Normal. negative: S3, S4, Murmur : Normal Auscultation: Bowel Sounds: Normal Palpation: Normal Tenderness: Suprapubic Skin: Normal Musculoskeletal: Normal Psychiatric: Normal Mood Description: Calm Affect: Normal Speech Pattern: Clear - Assessment/Plan (1) Urinary tract infection Qualifiers: Urinary tract infection type: acute cystitis Hematuria presence: with hematuria Qualified Code(s): N30.01 - Acute cystitis with hematuria Status: Acute Plan: NORMAL SALINE AT 125ML/HR, CONTINUE TO MONITOR (2) Hypokalemia Status: Acute Plan: POTASSIUM PROTOCOL, CONTINUE TO MONITOR (3) Hypomagnesemia Status: Acute Plan: MAGNESIUM PROTOCOL, CONTINUE TO MONITOR - Allergies Allergies/Adverse Reactions: Allergies Allergy/AdvReac Type Severity Reaction Status Date / Time INK Allergy Uncoded 07/02/15 09:16
[2019-11-26] MEDS ORDERED: LEVAQUIN PREMIX IV 750 MG 750 MG/150 ML BAG IV SCH (09:00)
[2019-11-26] MEDS: LEVAQUIN PREMIX IV 750 MG 750 MG/150 ML BAG IV SCH (09:09)
[2019-11-26] MEDS: K-DUR TAB 20 MEQ PO SCH ×2 (09:09→20:32)
[2019-11-26] MEDS: LOVENOX INJ 40 MG SYR SC SCH (10:51)
[2019-11-26] MEDS: SYNTHROID 50 mcg TAB PO SCH (11:25)
[2019-11-26] MEDS: SINEMET (PLAIN) 25/250 MG PO SCH ×2 (11:25→20:32)
[2019-11-26] MEDS: MEGACE ORAL SUSP 400 MG/10 ML PO SCH (17:30)
[2019-11-26] MEDS: PRAVACHOL PO SCH (20:32)
[2019-11-26] MEDS: PEPCID 20 MG IV PREMIX IV SCH (20:33)
[2019-11-27] MEDS: RESTORIL CAP 15 MG PO PRN ×2 (00:57→20:30)
[2019-11-27] MEDS: NS 1000 ML 1,000 ML IV SCH ×3 (05:47→21:14)
[2019-11-27] MEDS: MEGACE ORAL SUSP 400 MG/10 ML PO SCH ×2 (05:47→16:45)
[2019-11-27 06:06] LABS: BASOPHILS % (AUTO) 0.6 % (0.2-1.0); EOSINOPHILS # (AUTO) 0.1 x10^3/uL (0.0-0.2); EOSINOPHILS % (AUTO) 0.8 % (0.9-2.9); HEMATOCRIT 27.5 % (36.0-47.0); HEMOGLOBIN 9.5 g/dL (12.0-16.0); LYMPHOCYTES # (AUTO) 1.4 X10^3/uL (1.3-2.9); LYMPHOCYTES % (AUTO) 18.5 % (21.0-51.0); MEAN CORPUSCULAR HEMOGLOBIN 31.6 pg (27.0-34.0); MEAN CORPUSCULAR HGB CONC 34.5 g/dL (33.0-35.0); MEAN CORPUSCULAR VOLUME 91.7 fL (80.0-100.0); MEAN PLATELET VOLUME 9.5 fL (7.4-11.0); MONOCYTES # (AUTO) 0.4 x10^3/uL (0.3-0.8); NEUTROPHILS # (AUTO) 5.6 x10^3/uL (2.2-4.8); NEUTROPHILS % (AUTO) 74.1 % (42.0-75.0); PLATELET COUNT 158 X10^3/uL (150.0-450.0); RED BLOOD COUNT 2.99 X10^6/uL (3.5-5.4); RED CELL DISTRIBUTION WIDTH 13.1 % (11.6-16.5); WHITE BLOOD COUNT 7.5 X10^3/uL (3.6-10.0)
[2019-11-27 06:29] LABS: ALANINE AMINOTRANSFERASE 9 Units/L (12-78); ALBUMIN 2.7 g/dL (3.4-5.0); ALKALINE PHOSPHATASE 50 Units/L (46-116); ASPARTATE AMINO TRANSFERASE 21 Units/L (15-37); BLOOD UREA NITROGEN 16 mg/dL (7-18); CALCIUM 8.2 mg/dL (8.5-10.1); CHLORIDE 110 mmol/L (98-107); COR CA(FOR HYPOALB) 9.2 mg/dL (8.5-10.1); CREATININE 1.01 mg/dL (0.55-1.02); MAGNESIUM 1.6 mg/dL (1.7-2.9); SODIUM 142 mmol/L (136-145); TOTAL PROTEIN 5.8 g/dL (6.4-8.2); eGFR NON BLACK RACES 56 (>60)
[2019-11-27] MEDS: PEPCID 20 MG IV PREMIX IV SCH ×2 (08:45→20:17)
[2019-11-27] MEDS: SINEMET (PLAIN) 25/250 MG PO SCH ×3 (08:45→20:17)
[2019-11-27] MEDS: SYNTHROID 50 mcg TAB PO SCH ×2 (08:46→08:56)
[2019-11-27] MEDS: K-DUR TAB 20 MEQ PO SCH ×3 (08:46→20:16)
[2019-11-27] MEDS: LOVENOX INJ 40 MG SYR SC SCH (08:46)
[2019-11-27] MEDS: PROzac PO SCH ×2 (08:46→08:56)
[2019-11-27] MEDS: LEVAQUIN PREMIX IV 750 MG 750 MG/150 ML BAG IV SCH (09:43)
[2019-11-27] MEDS: MAGNESIUM SULFATE 1 GRAM/100 mL PREMIX 1 GM/100 ML BAG IV PRN (12:40)
[2019-11-27] MEDS: PRAVACHOL PO SCH (20:17)
--- NOTE | 2019-11-27 22:10 | PCM.PROG ---
Progress Note - Progress Note for Day of Date of Exam: 11/27/19 - Subjective Subjective: IS BEING TREATED FOR A URINARY TRACT INFECTION, HYPOKALEMIA, AND HYPOMAGNESEMIA. TODAY, SHE IS LYING IN BED WITH EYES CLOSED ON MORNING ROUNDS. SHE AWAKENS TO VERBAL STIMULI, BUT IS DISORIENTED. ON EXAMINATION, HEART IS REGULAR IN RATE AND RHYTHM. BILATERAL LUNGS ARE NOTED WITH DIMINISHED LUNG SOUNDS THROUGHOUT. ABDOMEN IS ROUND, SOFT, AND NON-TENDER WITH NORMAL BOWEL SOUNDS NOTED IN ALL QUADRANTS. HER VITALS THIS MORNING ARE: 98.1-88-25-98%-119/67. LABS WERE OBTAINED. ABNORMAL LAB VALUES INCLUDE THE FOLLOWING: RBC 2.99, HGB 9.5, HCT 27.5, CHLORIDE 110, CALCIUM 8.2, MAGNESIUM 1. 6, ALT 9, TOTAL PROTEIN 5.8, ALBUMIN 2.7. URINE CULTURE REPORTS GROWTH OF KLEBSIELLA PNEUMONIAE. STOOL CULTURE IS PENDING. SHE IS CURRENTLY RECEIVING NORMAL SALINE AT 125ML/HR, IV LEVAQUIN, IV PEPCID, THE POTASSIUM AND MAGNESIUM PROTOCOLS, AND HOME MEDICATIONS WERE RESUMED. WE WILL CONTINUE WITH CURRENT PLAN OF CARE TODAY. OTHERWISE, WE PLAN TO FOLLOW UP WITH AM LABS AND CONTINUE TO MONITOR. - Past Medical Family Social History Past Med/Fam/Surg Hx: No changes since H&P Allergies: Allergies INK Allergy (Uncoded 07/02/15 09:16) - Review of Systems ROS: No change since H&P - Vital Signs and I&O's Vital Signs: Temperature 99.1 F Pulse Rate [Left Radial] 61 Pulse Rate 84 Respiratory Rate 22 Blood Pressure [Left Arm] 88/49 Blood Pressure 100/59 O2 Sat by Pulse Oximetry 98 Intake and Output: Intake & Output 11/25/19 11/26/19 11/27/19 11/28/19 11:59 11:59 11:59 11:59 Intake Total 1682 / 1682 3629 / 3629 1975 / 1975 Output Total 750 / 750 1625 / 1625 1575 / 1575 Balance 932 / 932 2003 401 / 401 - Physical Exam Oriented: Not Oriented Eyes: Normal Ear: Normal Nose: Normal Throat: Normal Respiratory: Generalized, Diminished Cardiovascular: Normal. negative: S3, S4, Murmur : Normal Auscultation: Bowel Sounds: Normal Palpation: Normal Tenderness: Normal Skin: Normal Musculoskeletal: Normal Psychiatric: Normal Mood Description: Calm Affect: Normal Speech Pattern: Inappropriate - Laboratory and Diagnostics Result Diagrams: 11/27/19 04:25 11/27/19 04:25 Labs: 11/25/19 18:00 Stool Stool Culture - Preliminary 11/25/19 18:00 Stool - Final 11/25/19 11:24 Urine,Catheterized Urine Culture - Final Klebsiella Pneumoniae Laboratory WBC 7.5 X10^3/uL (3.6-10.0) 11/27/19 04:25 RBC 2.99 X10^6/uL (3.5-5.4) L 11/27/19 04:25 Hgb 9.5 g/dL (12.0-16.0) L 11/27/19 04:25 Hct 27.5 % (36.0-47.0) L 11/27/19 04:25 MCV 91.7 fL (80.0-100.0) 11/27/19 04:25 MCH 31.6 pg (27.0-34.0) 11/27/19 04:25 MCHC 34.5 g/dL (33.0-35.0) 11/27/19 04:25 RDW 13.1 % (11.6-16.5) 11/27/19 04:25 Plt Count 158 X10^3/uL (150.0-450.0) 11/27/19 04:25 MPV 9.5 fL (7.4-11.0) 11/27/19 04:25 Neut % (Auto) 74.1 % (42.0-75.0) 11/27/19 04:25 Lymph % (Auto) 18.5 % (21.0-51.0) L 11/27/19 04:25 [place] % (Auto) 6.0 % (0.0-13.0) 11/27/19 04:25 Eos % (Auto) 0.8 % (0.9-2.9) L 11/27/19 04:25 Baso % (Auto) 0.6 % (0.2-1.0) 11/27/19 04:25 Neut # (Auto) 5.6 x10^3/uL (2.2-4.8) H 11/27/19 04:25 Lymph # (Auto) 1.4 X10^3/uL (1.3-2.9) 11/27/19 04:25 [place] # (Auto) 0.4 x10^3/uL (0.3-0.8) 11/27/19 04:25 Eos # (Auto) 0.1 x10^3/uL (0.0-0.2) 11/27/19 04:25 Baso # (Auto) 0.0 X10^3/uL (0.0-0.1) 11/27/19 04:25 Absolute Nucleated RBC 0.0 /100WBC 11/27/19 04:25 Sodium 142 mmol/L (136-145) 11/27/19 04:25 Corrected Sodium TNP 11/27/19 04:25 Potassium 4.0 mmol/L (3.5-5.1) 11/27/19 04:25 Chloride 110 mmol/L (98-107) H 11/27/19 04:25 Carbon Dioxide 22.0 mmol/L (21-32) 11/27/19 04:25 BUN 16 mg/dL (7-18) 11/27/19 04:25 Creatinine 1.01 mg/dL (0.55-1.02) 11/27/19 04:25 Est GFR (MDRD) Af Amer > 60 (>60) 11/27/19 04:25 Est GFR (MDRD) Non-Af 56 (>60) L 11/27/19 04:25 Glucose 86 mg/dL (65-99) 11/27/19 04:25 Lactic Acid 0.9 mmol/L (0.4-2.0) 11/25/19 12:05 Calcium 8.2 mg/dL (8.5-10.1) L 11/27/19 04:25 Corrected Calcium 9.2 mg/dL (8.5-10.1) 11/27/19 04:25 Magnesium 1.6 mg/dL (1.7-2.9) L 11/27/19 04:25 Total Bilirubin 0.30 mg/dL (0.2-1.0) 11/27/19 04:25 AST 21 Units/L (15-37) 11/27/19 04:25 ALT 9 Units/L (12-78) L 11/27/19 04:25 Alkaline Phosphatase 50 Units/L (46-116) 11/27/19 04:25 Total Protein 5.8 g/dL (6.4-8.2) L 11/27/19 04:25 Albumin 2.7 g/dL (3.4-5.0) L 11/27/19 04:25 Globulin 3.1 g/dL (2.5-4.5) 11/27/19 04:25 Albumin/Globulin Ratio 0.9 Ratio (1.1-2.1) L 11/27/19 04:25 Specimen Type Catherized urine 11/25/19 11:24 Urine Color Yellow (YELLOW) 11/25/19 11:24 Urine Appearance Cloudy (CLEAR) 11/25/19 11:24 Urine pH 6.0 (5.0 - 8.0) 11/25/19 11:24 Ur Specific [place] 1.015 (1.000-1.030) 11/25/19 11:24 Urine Protein 2+ (NEGATIVE) 11/25/19 11:24 Urine Glucose (UA) Negative (NEGATIVE) 11/25/19 11:24 Urine Ketones Negative (NEGATIVE) 11/25/19 11:24 Urine Occult Blood 4+ (NEGATIVE) 11/25/19 11:24 Urine Nitrite Negative (NEGATIVE) 11/25/19 11:24 Urine Bilirubin Negative (NEGATIVE) 11/25/19 11:24 Urine Urobilinogen Normal (NORMAL) 11/25/19 11:24 Ur Leukocyte Esterase 3+ (NEGATIVE) 11/25/19 11:24 Urine RBC 20-30 /HPF (0-3) A 11/25/19 11:24 Urine WBC Tntc /HPF (0-5) A 11/25/19 11:24 Ur Squamous Epith Cells Few /HPF (NEGATIVE) 11/25/19 11:24 Urine Bacteria 2+ /HPF (NEGATIVE) 11/25/19 11:24 Ur Culture Indicated? Yes/culture set up 11/25/19 11:24 Stool Description 200g,dark green, 11/25/19 18:00 Stool Description 200g,dark green, 11/25/19 18:00 Stl Occult Blood (IFOB) Negative (NEGATIVE) 11/25/19 18:00 Stool for White Cells Positive (NEGATIVE) A 11/25/19 18:00 Stl C. diff Tox B Gene Negative (NEGATIVE) 11/25/19 18:00 Stl C. diff [id number] Negative (NEGATIVE) 11/25/19 18:00 Stool H. pylori Ag Negative (NEGATIVE) 11/25/19 18:00 Cryptosporid parvum Ag Negative (NEGATIVE) 11/25/19 18:00 Giardia lamblia Ag Negative (NEGATIVE) 11/25/19 18:00 - Plan (1) Urinary tract infection Status: Acute Qualifiers: Urinary tract infection type: acute cystitis Hematuria presence: with hematuria Qualified Code(s): N30.01 - Acute cystitis with hematuria Plan: NORMAL SALINE AT 125ML/HR, IV LEVAQUIN, CONTINUE TO MONITOR (2) Hypokalemia Status: Acute Plan: POTASSIUM PROTOCOL, CONTINUE TO MONITOR (3) Hypomagnesemia Status: Acute Plan: MAGNESIUM PROTOCOL, CONTINUE TO MONITOR
[2019-11-28] MEDS: NS 1000 ML 1,000 ML IV SCH ×5 (01:00→22:20)
[2019-11-28 05:10] LABS: BASOPHILS % (AUTO) 0.5 % (0.2-1.0); EOSINOPHILS % (AUTO) 0.6 % (0.9-2.9); HEMATOCRIT 25.3 % (36.0-47.0); HEMOGLOBIN 8.8 g/dL (12.0-16.0); LYMPHOCYTES # (AUTO) 1.4 X10^3/uL (1.3-2.9); LYMPHOCYTES % (AUTO) 17.3 % (21.0-51.0); MEAN CORPUSCULAR HEMOGLOBIN 31.9 pg (27.0-34.0); MEAN CORPUSCULAR VOLUME 91.4 fL (80.0-100.0); MEAN PLATELET VOLUME 9.5 fL (7.4-11.0); MONOCYTES # (AUTO) 0.5 x10^3/uL (0.3-0.8); MONOCYTES % (AUTO) 6.8 % (0.0-13.0); NEUTROPHILS # (AUTO) 5.9 x10^3/uL (2.2-4.8); NEUTROPHILS % (AUTO) 74.8 % (42.0-75.0); PLATELET COUNT 161 X10^3/uL (150.0-450.0); RED BLOOD COUNT 2.77 X10^6/uL (3.5-5.4); RED CELL DISTRIBUTION WIDTH 13.1 % (11.6-16.5); WHITE BLOOD COUNT 7.9 X10^3/uL (3.6-10.0)
[2019-11-28 05:30] LABS: ALBUMIN 2.5 g/dL (3.4-5.0); CALCIUM 7.8 mg/dL (8.5-10.1); CARBON DIOXIDE 21.8 mmol/L (21-32); CREATININE 1.19 mg/dL (0.55-1.02); MAGNESIUM 1.9 mg/dL (1.7-2.9); TOTAL PROTEIN 5.4 g/dL (6.4-8.2)
[2019-11-28] MEDS: BUTT CREAM (COMPOUND) TOP PRN (06:10)
[2019-11-28] MEDS: MEGACE ORAL SUSP 400 MG/10 ML PO SCH ×2 (06:29→16:10)
[2019-11-28] MEDS: LEVAQUIN PREMIX IV 750 MG 750 MG/150 ML BAG IV SCH (08:18)
[2019-11-28] MEDS: LOVENOX INJ 40 MG SYR SC SCH (08:18)
[2019-11-28] MEDS: K-DUR TAB 20 MEQ PO SCH ×2 (09:55→20:58)
[2019-11-28] MEDS: SINEMET (PLAIN) 25/250 MG PO SCH ×2 (09:55→20:58)
[2019-11-28] MEDS: PROzac PO SCH (09:55)
[2019-11-28] MEDS: PEPCID 20 MG IV PREMIX IV SCH ×2 (09:55→20:44)
[2019-11-28] MEDS: SYNTHROID 50 mcg TAB PO SCH (09:56)
--- NOTE | 2019-11-28 19:57 | PCM.PROG ---
Progress Note - Progress Note for Day of Date of Exam: 11/28/19 - Subjective Subjective: IS BEING TREATED FOR A URINARY TRACT INFECTION, HYPOKALEMIA, AND HYPOMAGNESEMIA. TODAY, SHE IS LYING IN BED WITH EYES CLOSED ON MORNING ROUNDS. SHE AWAKENS TO VERBAL STIMULI, BUT IS DISORIENTED. ON EXAMINATION, HEART IS REGULAR IN RATE AND RHYTHM. BILATERAL LUNGS ARE NOTED WITH DIMINISHED LUNG SOUNDS THROUGHOUT. ABDOMEN IS ROUND, SOFT, AND NON-TENDER WITH NORMAL BOWEL SOUNDS NOTED IN ALL QUADRANTS. HER VITALS THIS MORNING ARE: 97.8-79-22-99%-127/83. LABS WERE OBTAINED. ABNORMAL LAB VALUES INCLUDE THE FOLLOWING: RBC 2.77, HGB 8.8, HCT 25.3, CHLORIDE 112, CREATININE 1.19, GLUCOSE 129, CALCIUM 7.8, TOTAL BILI 0.10, ALK PHOS 45, TOTAL PROTEIN 5.4, ALBUMIN 2.5. URINE CULTURE REPORTS GROWTH OF KLEBSIELLA PNEUMONIAE. STOOL CULTURE IS PENDING. SHE IS CURRENTLY RECEIVING NORMAL SALINE AT 125ML/HR, IV LEVAQUIN, IV PEPCID, THE POTASSIUM AND MAGNESIUM PROTOCOLS, AND HOME MEDICATIONS WERE RESUMED. WE WILL CONTINUE WITH CURRENT PLAN OF CARE TODAY. OTHERWISE, WE PLAN TO FOLLOW UP WITH AM LABS AND CONTINUE TO MONITOR. - Past Medical Family Social History Past Med/Fam/Surg Hx: No changes since H&P Allergies: Allergies INK Allergy (Uncoded 07/02/15 09:16) - Review of Systems ROS: No change since H&P - Vital Signs and I&O's Vital Signs: Temperature 98.9 F Pulse Rate [Left Radial] 61 Pulse Rate 73 Respiratory Rate 17 Blood Pressure [Left Arm] 88/49 Blood Pressure 123/68 O2 Sat by Pulse Oximetry 100 Intake and Output: Intake & Output 11/26/19 11/27/19 11/28/19 11/29/19 11:59 11:59 11:59 11:59 Intake Total 1682 / 1682 3629 / 3629 3201 / 3201 1850 / 1850 Output Total 750 / 750 1625 / 1625 1974 / 1974 1300 / 1300 Balance 932 / 932 2003 / 2003 1226 / 1226 550 / 550 - Physical Exam Oriented: Not Oriented Eyes: Normal Ear: Normal Nose: Normal Throat: Normal Respiratory: Generalized, Diminished Cardiovascular: Normal. negative: S3, S4, Murmur : Normal Auscultation: Bowel Sounds: Normal Tenderness: Normal Skin: Normal Musculoskeletal: Normal Psychiatric: Normal Mood Description: Calm Affect: Normal Speech Pattern: Clear, Appropriate - Laboratory and Diagnostics Result Diagrams: 11/28/19 04:00 11/28/19 04:00 Labs: 11/25/19 18:00 Stool Stool Culture - Final 11/25/19 18:00 Stool - Final 11/25/19 11:24 Urine,Catheterized Urine Culture - Final Klebsiella Pneumoniae Laboratory WBC 7.9 X10^3/uL (3.6-10.0) 11/28/19 04:00 RBC 2.77 X10^6/uL (3.5-5.4) L 11/28/19 04:00 Hgb 8.8 g/dL (12.0-16.0) L 11/28/19 04:00 Hct 25.3 % (36.0-47.0) L 11/28/19 04:00 MCV 91.4 fL (80.0-100.0) 11/28/19 04:00 MCH 31.9 pg (27.0-34.0) 11/28/19 04:00 MCHC 35.0 g/dL (33.0-35.0) 11/28/19 04:00 RDW 13.1 % (11.6-16.5) 11/28/19 04:00 Plt Count 161 X10^3/uL (150.0-450.0) 11/28/19 04:00 MPV 9.5 fL (7.4-11.0) 11/28/19 04:00 Neut % (Auto) 74.8 % (42.0-75.0) 11/28/19 04:00 Lymph % (Auto) 17.3 % (21.0-51.0) L 11/28/19 04:00 [place] % (Auto) 6.8 % (0.0-13.0) 11/28/19 04:00 Eos % (Auto) 0.6 % (0.9-2.9) L 11/28/19 04:00 Baso % (Auto) 0.5 % (0.2-1.0) 11/28/19 04:00 Neut # (Auto) 5.9 x10^3/uL (2.2-4.8) H 11/28/19 04:00 Lymph # (Auto) 1.4 X10^3/uL (1.3-2.9) 11/28/19 04:00 [place] # (Auto) 0.5 x10^3/uL (0.3-0.8) 11/28/19 04:00 Eos # (Auto) 0.0 x10^3/uL (0.0-0.2) 11/28/19 04:00 Baso # (Auto) 0.0 X10^3/uL (0.0-0.1) 11/28/19 04:00 Absolute Nucleated RBC 0.0 /100WBC 11/28/19 04:00 Sodium 143 mmol/L (136-145) 11/28/19 04:00 Corrected Sodium 144 mmol/L (136-145) 11/28/19 04:00 Potassium 4.1 mmol/L (3.5-5.1) 11/28/19 04:00 Chloride 112 mmol/L (98-107) H 11/28/19 04:00 Carbon Dioxide 21.8 mmol/L (21-32) 11/28/19 04:00 BUN 15 mg/dL (7-18) 11/28/19 04:00 Creatinine 1.19 mg/dL (0.55-1.02) H 11/28/19 04:00 Est GFR (MDRD) Af Amer 56 (>60) L 11/28/19 04:00 Est GFR (MDRD) Non-Af 47 (>60) L 11/28/19 04:00 Glucose 129 mg/dL (65-99) H 11/28/19 04:00 Lactic Acid 0.9 mmol/L (0.4-2.0) 11/25/19 12:05 Calcium 7.8 mg/dL (8.5-10.1) L 11/28/19 04:00 Corrected Calcium 9.0 mg/dL (8.5-10.1) 11/28/19 04:00 Magnesium 1.9 mg/dL (1.7-2.9) 11/28/19 04:00 Total Bilirubin 0.10 mg/dL (0.2-1.0) L 11/28/19 04:00 AST 19 Units/L (15-37) 11/28/19 04:00 ALT 16 Units/L (12-78) 11/28/19 04:00 Alkaline Phosphatase 45 Units/L (46-116) L 11/28/19 04:00 Total Protein 5.4 g/dL (6.4-8.2) L 11/28/19 04:00 Albumin 2.5 g/dL (3.4-5.0) L 11/28/19 04:00 Globulin 2.9 g/dL (2.5-4.5) 11/28/19 04:00 Albumin/Globulin Ratio 0.9 Ratio (1.1-2.1) L 11/28/19 04:00 Specimen Type Catherized urine 11/25/19 11:24 Urine Color Yellow (YELLOW) 11/25/19 11:24 Urine Appearance Cloudy (CLEAR) 11/25/19 11:24 Urine pH 6.0 (5.0 - 8.0) 11/25/19 11:24 Ur Specific [place] 1.015 (1.000-1.030) 11/25/19 11:24 Urine Protein 2+ (NEGATIVE) 11/25/19 11:24 Urine Glucose (UA) Negative (NEGATIVE) 11/25/19 11:24 Urine Ketones Negative (NEGATIVE) 11/25/19 11:24 Urine Occult Blood 4+ (NEGATIVE) 11/25/19 11:24 Urine Nitrite Negative (NEGATIVE) 11/25/19 11:24 Urine Bilirubin Negative (NEGATIVE) 11/25/19 11:24 Urine Urobilinogen Normal (NORMAL) 11/25/19 11:24 Ur Leukocyte Esterase 3+ (NEGATIVE) 11/25/19 11:24 Urine RBC 20-30 /HPF (0-3) A 11/25/19 11:24 Urine WBC Tntc /HPF (0-5) A 11/25/19 11:24 Ur Squamous Epith Cells Few /HPF (NEGATIVE) 11/25/19 11:24 Urine Bacteria 2+ /HPF (NEGATIVE) 11/25/19 11:24 Ur Culture Indicated? Yes/culture set up 11/25/19 11:24 Stool Description 200g,dark green, 11/25/19 18:00 Stool Description 200g,dark green, 11/25/19 18:00 Stl Occult Blood (IFOB) Negative (NEGATIVE) 11/25/19 18:00 Stool for White Cells Positive (NEGATIVE) A 11/25/19 18:00 Stl C. diff Tox B Gene Negative (NEGATIVE) 11/25/19 18:00 Stl C. diff [id number] Negative (NEGATIVE) 11/25/19 18:00 Stool H. pylori Ag Negative (NEGATIVE) 11/25/19 18:00 Cryptosporid parvum Ag Negative (NEGATIVE) 11/25/19 18:00 Giardia lamblia Ag Negative (NEGATIVE) 11/25/19 18:00 - Plan (1) Urinary tract infection Status: Acute Qualifiers: Urinary tract infection type: acute cystitis Hematuria presence: with hemat uria Qualified Code(s): N30.01 - Acute cystitis with hematuria Plan: NORMAL SALINE AT 125ML/HR, IV LEVAQUIN, CONTINUE TO MONITOR (2) Hypokalemia Status: Acute Plan: POTASSIUM PROTOCOL, CONTINUE TO MONITOR (3) Hypomagnesemia Status: Acute Plan: MAGNESIUM PROTOCOL, CONTINUE TO MONITOR
[2019-11-28] MEDS: PRAVACHOL PO SCH (20:58)
[2019-11-29] MEDS: NS 1000 ML 1,000 ML IV SCH ×4 (04:14→16:51)
[2019-11-29] MEDS: MEGACE ORAL SUSP 400 MG/10 ML PO SCH ×2 (05:41→16:48)
[2019-11-29 05:46] LABS: BASOPHILS % (AUTO) 0.5 % (0.2-1.0); EOSINOPHILS # (AUTO) 0.1 x10^3/uL (0.0-0.2); EOSINOPHILS % (AUTO) 0.8 % (0.9-2.9); HEMATOCRIT 25.4 % (36.0-47.0); HEMOGLOBIN 8.9 g/dL (12.0-16.0); LYMPHOCYTES # (AUTO) 1.5 X10^3/uL (1.3-2.9); LYMPHOCYTES % (AUTO) 21.3 % (21.0-51.0); MEAN CORPUSCULAR HEMOGLOBIN 32.3 pg (27.0-34.0); MEAN CORPUSCULAR HGB CONC 35.1 g/dL (33.0-35.0); MEAN CORPUSCULAR VOLUME 92.1 fL (80.0-100.0); MEAN PLATELET VOLUME 9.5 fL (7.4-11.0); MONOCYTES # (AUTO) 0.4 x10^3/uL (0.3-0.8); MONOCYTES % (AUTO) 6.2 % (0.0-13.0); NEUTROPHILS # (AUTO) 5.1 x10^3/uL (2.2-4.8); NEUTROPHILS % (AUTO) 71.2 % (42.0-75.0); PLATELET COUNT 167 X10^3/uL (150.0-450.0); RED BLOOD COUNT 2.76 X10^6/uL (3.5-5.4); RED CELL DISTRIBUTION WIDTH 13.2 % (11.6-16.5); WHITE BLOOD COUNT 7.1 X10^3/uL (3.6-10.0)
[2019-11-29 05:54] LABS: ALANINE AMINOTRANSFERASE 8 Units/L (12-78); ALBUMIN 2.4 g/dL (3.4-5.0); ALKALINE PHOSPHATASE 45 Units/L (46-116); ASPARTATE AMINO TRANSFERASE 15 Units/L (15-37); BLOOD UREA NITROGEN 11 mg/dL (7-18); CALCIUM 7.9 mg/dL (8.5-10.1); CARBON DIOXIDE 20.9 mmol/L (21-32); CHLORIDE 112 mmol/L (98-107); COR CA(FOR HYPOALB) 9.2 mg/dL (8.5-10.1); CREATININE 0.98 mg/dL (0.55-1.02); MAGNESIUM 1.6 mg/dL (1.7-2.9); SODIUM 143 mmol/L (136-145); TOTAL PROTEIN 5.2 g/dL (6.4-8.2); eGFR NON BLACK RACES 58 (>60)
[2019-11-29] MEDS: BUTT CREAM (COMPOUND) TOP PRN (06:15)
[2019-11-29] MEDS: MAGNESIUM SULFATE 1 GRAM/100 mL PREMIX 1 GM/100 ML BAG IV PRN ×2 (06:15→08:09)
[2019-11-29 07:19] LABS: SODIUM STOOL 65
[2019-11-29 07:20] LABS: CHLORIDE STOOL 62; POTASSIUM STOOL 82
[2019-11-29] MEDS: LEVAQUIN PREMIX IV 750 MG 750 MG/150 ML BAG IV SCH (09:31)
[2019-11-29] MEDS: K-DUR TAB 20 MEQ PO SCH ×2 (09:31→20:17)
[2019-11-29] MEDS: PEPCID 20 MG IV PREMIX IV SCH ×2 (09:32→20:17)
[2019-11-29] MEDS: SYNTHROID 50 mcg TAB PO SCH (09:32)
[2019-11-29] MEDS: SINEMET (PLAIN) 25/250 MG PO SCH ×2 (09:32→20:17)
[2019-11-29] MEDS: PROzac PO SCH (09:32)
[2019-11-29] MEDS: LOVENOX INJ 40 MG SYR SC SCH (10:24)
--- NOTE | 2019-11-29 20:07 | PCM.PROG ---
Progress Note - Progress Note for Day of Date of Exam: 11/29/19 - Subjective Subjective: IS BEING TREATED FOR A URINARY TRACT INFECTION, HYPOKALEMIA, AND HYPOMAGNESEMIA. TODAY, SHE IS LYING IN BED WITH EYES CLOSED ON MORNING ROUNDS. SHE AWAKENS TO VERBAL STIMULI, BUT CONTINUES TO BE DISORIENTED. ON EXAMINATION, HEART IS REGULAR IN RATE AND RHYTHM. BILATERAL LUNGS ARE NOTED WITH DIMINISHED LUNG SOUNDS THROUGHOUT. ABDOMEN IS ROUND, SOFT, AND NON-TENDER WITH NORMAL BOWEL SOUNDS NOTED IN ALL QUADRANTS. HER VITALS THIS MORNING ARE: 98.9-74-26-97%-109/72. LABS WERE OBTAINED. ABNORMAL LAB VALUES INCLUDE THE FOLLOWING: RBC 2.76, HGB 8.9, HCT 25.4, CHLORIDE 112, CARBON DIOXIDE 20.9, CALCIUM 7.9, MAGNESIUM 1.6, ALT 8, ALK PHOS 45, TOTAL PROTEIN 5.2, ALBUMIN 2.4. URINE CULTURE REPORTS GROWTH OF KLEBSIELLA PNEUMONIAE. SHE IS CURRENTLY RECEIVING NORMAL SALINE AT 125ML/HR, IV LEVAQUIN, IV PEPCID, THE POTASSIUM AND MAGNESIUM PROTOCOLS, AND HOME MEDICATIONS WERE RESUMED. WE WILL CONTINUE WITH CURRENT PLAN OF CARE TODAY AND HAVE PHYSICAL THERAPY WORK WITH PATIENT. OTHERWISE, WE PLAN TO FOLLOW UP WITH AM LABS AND CONTINUE TO MONITOR. - Past Medical Family Social History Past Med/Fam/Surg Hx: No changes since H&P Allergies: Allergies INK Allergy (Uncoded 07/02/15 09:16) - Review of Systems ROS: No change since H&P - Vital Signs and I&O's Vital Signs: Temperature 99.2 F Pulse Rate [Left Radial] 61 Pulse Rate 81 Respiratory Rate 18 Blood Pressure [Left Arm] 88/49 Blood Pressure 109/59 O2 Sat by Pulse Oximetry 98 Intake and Output: Intake & Output 11/27/19 11/28/19 11/29/19 11/30/19 11:59 11:59 11:59 11:59 Intake Total 3629 / 3629 3201 / 3201 3962 / 3962 1650 / 1650 Output Total 1625 / 1625 1974 / 1974 2800 / 2800 1800 / 1800 Balance 2003 1226 / 1226 1162 / 1162 -150 / -150 - Physical Exam Oriented: Not Oriented Eyes: Normal Ear: Normal Nose: Normal Throat: Normal Respiratory: Generalized, Diminished Cardiovascular: Normal. negative: S3, S4, Murmur : Normal Auscultation: Bowel Sounds: Normal Palpation: Normal Tenderness: Normal Skin: Normal Musculoskeletal: Normal Psychiatric: Normal Mood Description: Calm Affect: Normal Speech Pattern: Clear, Appropriate - Laboratory and Diagnostics Result Diagrams: 11/29/19 03:59 11/29/19 03:59 Labs: 11/25/19 18:00 Stool Stool Culture - Final 11/25/19 18:00 Stool - Final 11/25/19 11:24 Urine,Catheterized Urine Culture - Final Klebsiella Pneumoniae Laboratory WBC 7.1 X10^3/uL (3.6-10.0) 11/29/19 03:59 RBC 2.76 X10^6/uL (3.5-5.4) L 11/29/19 03:59 Hgb 8.9 g/dL (12.0-16.0) L 11/29/19 03:59 Hct 25.4 % (36.0-47.0) L 11/29/19 03:59 MCV 92.1 fL (80.0-100.0) 11/29/19 03:59 MCH 32.3 pg (27.0-34.0) 11/29/19 03:59 MCHC 35.1 g/dL (33.0-35.0) H 11/29/19 03:59 RDW 13.2 % (11.6-16.5) 11/29/19 03:59 Plt Count 167 X10^3/uL (150.0-450.0) 11/29/19 03:59 MPV 9.5 fL (7.4-11.0) 11/29/19 03:59 Neut % (Auto) 71.2 % (42.0-75.0) 11/29/19 03:59 Lymph % (Auto) 21.3 % (21.0-51.0) 11/29/19 03:59 [place] % (Auto) 6.2 % (0.0-13.0) 11/29/19 03:59 Eos % (Auto) 0.8 % (0.9-2.9) L 11/29/19 03:59 Baso % (Auto) 0.5 % (0.2-1.0) 11/29/19 03:59 Neut # (Auto) 5.1 x10^3/uL (2.2-4.8) H 11/29/19 03:59 Lymph # (Auto) 1.5 X10^3/uL (1.3-2.9) 11/29/19 03:59 [place] # (Auto) 0.4 x10^3/uL (0.3-0.8) 11/29/19 03:59 Eos # (Auto) 0.1 x10^3/uL (0.0-0.2) 11/29/19 03:59 Baso # (Auto) 0.0 X10^3/uL (0.0-0.1) 11/29/19 03:59 Absolute Nucleated RBC 0.0 /100WBC 11/29/19 03:59 Sodium 143 mmol/L (136-145) 11/29/19 03:59 Corrected Sodium TNP 11/29/19 03:59 Potassium 4.1 mmol/L (3.5-5.1) 11/29/19 03:59 Chloride 112 mmol/L (98-107) H 11/29/19 03:59 Carbon Dioxide 20.9 mmol/L (21-32) L 11/29/19 03:59 BUN 11 mg/dL (7-18) 11/29/19 03:59 Creatinine 0.98 mg/dL (0.55-1.02) 11/29/19 03:59 Est GFR (MDRD) Af Amer > 60 (>60) 11/29/19 03:59 Est GFR (MDRD) Non-Af 58 (>60) L 11/29/19 03:59 Glucose 92 mg/dL (65-99) 11/29/19 03:59 Lactic Acid 0.9 mmol/L (0.4-2.0) 11/25/19 12:05 Calcium 7.9 mg/dL (8.5-10.1) L 11/29/19 03:59 Corrected Calcium 9.2 mg/dL (8.5-10.1) 11/29/19 03:59 Magnesium 1.6 mg/dL (1.7-2.9) L 11/29/19 03:59 Total Bilirubin 0.30 mg/dL (0.2-1.0) 11/29/19 03:59 AST 15 Units/L (15-37) 11/29/19 03:59 ALT 8 Units/L (12-78) L 11/29/19 03:59 Alkaline Phosphatase 45 Units/L (46-116) L 11/29/19 03:59 Total Protein 5.2 g/dL (6.4-8.2) L 11/29/19 03:59 Albumin 2.4 g/dL (3.4-5.0) L 11/29/19 03:59 Globulin 2.8 g/dL (2.5-4.5) 11/29/19 03:59 Albumin/Globulin Ratio 0.9 Ratio (1.1-2.1) L 11/29/19 03:59 Specimen Type Catherized urine 11/25/19 11:24 Urine Color Yellow (YELLOW) 11/25/19 11:24 Urine Appearance Cloudy (CLEAR) 11/25/19 11:24 Urine pH 6.0 (5.0 - 8.0) 11/25/19 11:24 Ur Specific [place] 1.015 (1.000-1.030) 11/25/19 11:24 Urine Protein 2+ (NEGATIVE) 11/25/19 11:24 Urine Glucose (UA) Negative (NEGATIVE) 11/25/19 11:24 Urine Ketones Negative (NEGATIVE) 11/25/19 11:24 Urine Occult Blood 4+ (NEGATIVE) 11/25/19 11:24 Urine Nitrite Negative (NEGATIVE) 11/25/19 11:24 Urine Bilirubin Negative (NEGATIVE) 11/25/19 11:24 Urine Urobilinogen Normal (NORMAL) 11/25/19 11:24 Ur Leukocyte Esterase 3+ (NEGATIVE) 11/25/19 11:24 Urine RBC 20-30 /HPF (0-3) A 11/25/19 11:24 Urine WBC Tntc /HPF (0-5) A 11/25/19 11:24 Ur Squamous Epith Cells Few /HPF (NEGATIVE) 11/25/19 11:24 Urine Bacteria 2+ /HPF (NEGATIVE) 11/25/19 11:24 Ur Culture Indicated? Yes/culture set up 11/25/19 11:24 Stool Description 200g,dark green, 11/25/19 18:00 Stool Description 200g,dark green, 11/25/19 18:00 Stool Neutral Fats Normal (Normal) 11/25/19 18:00 Stool Split Fat Normal (Normal) 11/25/19 18:00 Stool Sodium 65 11/25/19 18:00 Stool Potassium 82 11/25/19 18:00 Stool Chloride 62 11/25/19 18:00 Stl Occult Blood (IFOB) Negative (NEGATIVE) 11/25/19 18:00 Stool for White Cells Positive (NEGATIVE) A 11/25/19 18:00 Stl C. diff Tox B Gene Negative (NEGATIVE) 11/25/19 18:00 Stl C. diff [id number]-NAP1-[id number] Negative (NEGATIVE) 11/25/19 18:00 Stool H. pylori Ag Negative (NEGATIVE) 11/25/19 18:00 Cryptosporid parvum Ag Negative (NEGATIVE) 11/25/19 18:00 Giardia lamblia Ag Negative (NEGATIVE) 11/25/19 18:00 - Plan (1) Urinary tract infection Status: Acute Qualifiers: Urinary tract infection type: acute cystitis Hematuria presence: with he maturia Qualified Code(s): N30.01 - Acute cystitis with hematuria Plan: NORMAL SALINE AT 125ML/HR, IV LEVAQUIN, CONTINUE TO MONITOR (2) Hypokalemia Status: Acute Plan: POTASSIUM PROTOCOL, CONTINUE TO MONITOR (3) Hypomagnesemia Status: Acute Plan: MAGNESIUM PROTOCOL, CONTINUE TO MONITOR
[2019-11-29] MEDS: PRAVACHOL PO SCH (20:17)
[2019-11-29] MEDS: RESTORIL CAP 15 MG PO PRN (21:41)
[2019-11-30] MEDS: NS 1000 ML 1,000 ML IV SCH ×4 (00:33→17:02)
[2019-11-30 06:28] LABS: BASOPHILS % (AUTO) 0.5 % (0.2-1.0); EOSINOPHILS # (AUTO) 0.1 x10^3/uL (0.0-0.2); HEMATOCRIT 26.2 % (36.0-47.0); HEMOGLOBIN 9.3 g/dL (12.0-16.0); LYMPHOCYTES # (AUTO) 1.4 X10^3/uL (1.3-2.9); LYMPHOCYTES % (AUTO) 19.6 % (21.0-51.0); MEAN CORPUSCULAR HEMOGLOBIN 32.2 pg (27.0-34.0); MEAN CORPUSCULAR HGB CONC 35.4 g/dL (33.0-35.0); MEAN CORPUSCULAR VOLUME 90.9 fL (80.0-100.0); MONOCYTES # (AUTO) 0.5 x10^3/uL (0.3-0.8); MONOCYTES % (AUTO) 6.6 % (0.0-13.0); NEUTROPHILS # (AUTO) 5.3 x10^3/uL (2.2-4.8); NEUTROPHILS % (AUTO) 72.3 % (42.0-75.0); PLATELET COUNT 179 X10^3/uL (150.0-450.0); RED BLOOD COUNT 2.88 X10^6/uL (3.5-5.4); RED CELL DISTRIBUTION WIDTH 13.2 % (11.6-16.5); WHITE BLOOD COUNT 7.3 X10^3/uL (3.6-10.0)
[2019-11-30 07:04] LABS: ALANINE AMINOTRANSFERASE 11 Units/L (12-78); ALBUMIN 2.5 g/dL (3.4-5.0); ALKALINE PHOSPHATASE 47 Units/L (46-116); ASPARTATE AMINO TRANSFERASE 19 Units/L (15-37); BLOOD UREA NITROGEN 13 mg/dL (7-18); CALCIUM 8.1 mg/dL (8.5-10.1); CARBON DIOXIDE 22.4 mmol/L (21-32); CHLORIDE 111 mmol/L (98-107); COR CA(FOR HYPOALB) 9.3 mg/dL (8.5-10.1); MAGNESIUM 1.9 mg/dL (1.7-2.9); SODIUM 141 mmol/L (136-145); TOTAL PROTEIN 5.4 g/dL (6.4-8.2); eGFR NON BLACK RACES 51 (>60)
[2019-11-30] MEDS: LOVENOX INJ 40 MG SYR SC SCH (08:45)
[2019-11-30] MEDS: SINEMET (PLAIN) 25/250 MG PO SCH (08:47)
[2019-11-30] MEDS: SYNTHROID 50 mcg TAB PO SCH (08:47)
[2019-11-30] MEDS: PROzac PO SCH (08:48)
[2019-11-30] MEDS: K-DUR TAB 20 MEQ PO SCH (08:48)
[2019-11-30] MEDS: LEVAQUIN PREMIX IV 750 MG 750 MG/150 ML BAG IV SCH (08:49)
[2019-11-30] MEDS: PEPCID 20 MG IV PREMIX IV SCH (08:49)
[2019-11-30] MEDS: MEGACE ORAL SUSP 400 MG/10 ML PO SCH (08:59)
[2019-11-30 17:00] VITALS: BP 118/58
== END 2019-11-30 16:00 | disposition home health service (06) | DRG 690 ==
LOC: MED/SURG 10:10 → ER 10:10 → ICU 14:49
PROVIDERS: ADMIT Internal Medicine; ATTEND Internal Medicine
DX: I10 Essential (primary) hypertension; R05 Cough; E87.6 Hypokalemia; R41.82 Altered mental status, unspecified; R19.7 Diarrhea, unspecified; B96.1 Klebsiella pneumoniae [K. pneumoniae] as the cause of diseases classified elsewhere; E83.42 Hypomagnesemia; N30.01 Acute cystitis with hematuria
CPT/HCPCS: 36415; 51702; 71010; 71045; 80053; 81001; 82270; 82438; 82705; 83605; 83630; 83735; 84132; 84302; 84999; 85025; 87045; 87086; 87088; 87186; 87328; 87329; 87338; 87427; 87449; 87493; 87899; 96365; 96367; 96374; 96375; 97163; 97167; 97530; 97535; 99284; S0028; A4216; A4222; G0378; J1650; J1956; J3475; J7030; J7040

== ENCOUNTER 2021-03-23 09:32 | Observation (INO) ==
[2021-03-23 09:57] VITALS: BMI 18.0
--- NOTE | 2021-03-23 10:19 | DR.WEAKNES ---
HPI Time Seen Time Seen by Provider: 03/23/21 09:41 HPI Comment HPI Comment: Patient brought in via EMS after patient had an episode of AMS at home this morning. Daughter notes that patient has been having incontinence of stool for the past 2 days, so they got patient up to shower. Patient sitting in shower chair, and had LOC event that lasted about 5 minutes. Daughter states that she is unsure if this was a stroke or a seizure. No history of seizure. No new medications. No known sick contacts. Daughter does note that patient has seemed to have a few episodes of aspiration now that her swallowing is becoming impaired due to Parkinson's. Timing Symptom Onset: Unknown Context Stroke Symptoms: None PMH PMH Past Medical History: Dementia and Hypertension Past Surgical History: No Surgical History: No History Family History Family Medical History: Diabetes Mellitus, Cancer and Hypertension Social History Do you use any recreational Drugs:: No ROS Review of Systems Constitutional: See HPI All Other Systems: Reviewed and Negative Unable to Obtain Due To: Altered mental status PE Vital Signs Vitals: Temperature 98.3 F Pulse Rate 49 Respiratory Rate 18 Blood Pressure [Left Arm] 88/49 Blood Pressure 146/66 O2 Sat by Pulse Oximetry 94 General Limitations: Altered Mental Status Head Head Exam: Normal Inspection, Atraumatic and Normocephalic Chest Chest Inspection: Normal Inspection and Symmetric Chest Wall Rise Respiratory Respiratory Exam: Normal Lung Sounds Bilat Respiratory Exam: Bilateral: Clear to Auscultation Cardiovascular Cardiovascular Exam: Regular Rate, Normal Rhythm and Normal Heart Sounds Abdominal Exam Abdominal Exam: Normal Inspection, Normal Bowel Sounds and Soft Neurologic Patient Oriented To: negative Person, Place and Time Skin Skin Exam: Warm, Dry and Intact COURSE Reevaluation 1st: Unchanged Consultation Called: 12:33 Consultation Comments: Spoke with Dr. Whaley ( operations support representative for [facility]) who accepts patient for admission. ROR Labs Reviewed Laboratory Results Reviewed?: Yes Result Diagrams: 03/23/21 10:15 03/23/21 10:15 Laboratory: WBC 12.5 X10^3/uL (3.6-10.0) H 03/23/21 10:15 RBC 4.25 X10^6/uL (3.5-5.4) 03/23/21 10:15 Hgb 13.7 g/dL (12.0-16.0) 03/23/21 10:15 Hct 39.0 % (36.0-47.0) 03/23/21 10:15 MCV 91.8 fL (80.0-100.0) 03/23/21 10:15 MCH 32.2 pg (27.0-34.0) 03/23/21 10:15 MCHC 35.1 g/dL (33.0-35.0) H 03/23/21 10:15 RDW 12.7 % (11.6-16.5) 03/23/21 10:15 Plt Count 181 X10^3/uL (150.0-450.0) 03/23/21 10:15 Plt Count Comment Adequate (ADEQUATE) 03/23/21 10:15 MPV 9.5 fL (7.4-11.0) 03/23/21 10:15 Neut % (Auto) 80.3 % (42.0-75.0) H 03/23/21 10:15 Lymph % (Auto) 13.5 % (21.0-51.0) L 03/23/21 10:15 [place] % (Auto) 4.7 % (0.0-13.0) 03/23/21 10:15 Eos % (Auto) 0.9 % (0.9-2.9) 03/23/21 10:15 Baso % (Auto) 0.6 % (0.2-1.0) 03/23/21 10:15 Neut # (Auto) 8.9 x10^3/uL (2.2-4.8) H 03/23/21 10:15 Lymph # (Auto) 1.5 X10^3/uL (1.3-2.9) 03/23/21 10:15 [place] # (Auto) 0.5 x10^3/uL (0.3-0.8) 03/23/21 10:15 Eos # (Auto) 0.1 x10^3/uL (0.0-0.2) 03/23/21 10:15 Baso # (Auto) 0.1 X10^3/uL (0.0-0.1) 03/23/21 10:15 Absolute Nucleated RBC 0.2 /100WBC 03/23/21 10:15 Plt Morphology Comment Normal (NORMAL) 03/23/21 10:15 RBC Morphology Normal (NORMAL) 03/23/21 10:15 Sodium 142 mmol/L (136-145) 03/23/21 10:15 Corrected Sodium 142 mmol/L (136-145) 03/23/21 10:15 Potassium 3.8 mmol/L (3.5-5.1) 03/23/21 10:15 Chloride 105 mmol/L (98-107) 03/23/21 10:15 Carbon Dioxide 33.4 mmol/L (21-32) H 03/23/21 10:15 BUN 25 mg/dL (7-18) H 03/23/21 10:15 Creatinine 1.03 mg/dL (0.55-1.02) H 03/23/21 10:15 Est GFR (MDRD) Af Amer > 60 (>60) 03/23/21 10:15 Est GFR (MDRD) Non-Af 55 (>60) L 03/23/21 10:15 Glucose 117 mg/dL (65-99) H 03/23/21 10:15 Calcium 8.6 mg/dL (8.5-10.1) 03/23/21 10:15 Corrected Calcium 9.2 mg/dL (8.5-10.1) 03/23/21 10:15 Total Bilirubin 0.40 mg/dL (0.2-1.0) 03/23/21 10:15 AST 20 Units/L (15-37) 03/23/21 10:15 ALT 19 Units/L (12-78) 03/23/21 10:15 Alkaline Phosphatase 74 Units/L (46-116) 03/23/21 10:15 Creatine Kinase 71 Units/L (26-192) 03/23/21 10:15 CK-MB (CK-2) 2.1 ng/mL (0-4.0) 03/23/21 10:15 CK/CKMB % Calc 3.0 % (<4) 03/23/21 10:15 Troponin I < 0.02 ng/mL (0-1.5) 03/23/21 10:15 Total Protein 6.6 g/dL (6.4-8.2) 03/23/21 10:15 Albumin 3.3 g/dL (3.4-5.0) L 03/23/21 10:15 Globulin 3.3 g/dL (2.5-4.5) 03/23/21 10:15 Albumin/Globulin Ratio 1.0 Ratio (1.1-2.1) L 03/23/21 10:15 Specimen Type Catherized urine 03/23/21 11:35 Urine Color Yellow (YELLOW) 03/23/21 11:35 Urine Appearance Clear (CLEAR) 03/23/21 11:35 Urine pH 6.0 (5.0 - 8.0) 03/23/21 11:35 Ur Specific [place] 1.020 (1.000-1.030) 03/23/21 11:35 Urine Protein 2+ (NEGATIVE) 03/23/21 11:35 Urine Glucose (UA) Negative (NEGATIVE) 03/23/21 11:35 Urine Ketones Negative (NEGATIVE) 03/23/21 11:35 Urine Occult Blood 2+ (NEGATIVE) 03/23/21 11:35 Urine Nitrite Negative (NEGATIVE) 03/23/21 11:35 Urine Bilirubin Negative (NEGATIVE) 03/23/21 11:35 Urine Urobilinogen Normal (NORMAL) 03/23/21 11:35 Ur Leukocyte Esterase Negative (NEGATIVE) 03/23/21 11:35 Urine RBC 5-10 /HPF (0-3) A 03/23/21 11:35 Urine WBC 3-5 /HPF (0-5) 03/23/21 11:35 Ur Squamous Epith Cells Few /HPF (NEGATIVE) 03/23/21 11:35 Urine Bacteria Trace /HPF (NEGATIVE) 03/23/21 11:35 Hyaline Casts Moderate /LPF (NEGATIVE) 03/23/21 11:35 Granular Casts Few /LPF (NEGATIVE) 03/23/21 11:35 Urine Mucus Numerous /HPF (NEGATIVE) 03/23/21 11:35 Ur Culture Indicated? No/not indicated 03/23/21 11:35 SARS-CoV-2 (PCR) Negative (NEGATIVE) 03/23/21 10:55 Influenza Type A (PCR) Negative (NEGATIVE) 03/23/21 10:55 Influenza Type B (PCR) Negative (NEGATIVE) 03/23/21 10:55 RSV (PCR) Negative (NEGATIVE) 03/23/21 10:55 XRAY X-ray Results: HISTORY AMS STUDY BRAIN W/O CON COMPARISON 04/22/2019 TECHNIQUE Multiple axial images of the head were performed from the skull base to the vertex using standard departmental protocol. Sagittal and coronal reformatted images were performed. Dose reduction techniques including Automated Exposure Control (AEC) and adjustment of mA and kV were utilized. FINDINGS No evidence of acute territorial infarct. No acute intracranial hemorrhage. No evidence of intracranial mass or midline shift. No hydrocephalus. No abnormal intra or extra-axial fluid collections. The calvaria is intact. The bilateral mastoid air cells and visualized paranasal sinuses are well pneumatized. The bilateral orbits are unremarkable. IMPRESSION No acute intracranial findings. Electronically signed by: EBONY ROLDAN (March 23, 2021 10:48:49) HISTORY AMS STUDY CHEST, 1 VIEW COMPARISON 11/25/2019. TECHNIQUE AP view of the chest FINDINGS Cardiac and mediastinal contours are within normal limits. Right perihilar subsegmental atelectasis versus scar. No consolidation. No definite pleural effusion or pneumothorax. IMPRESSION Right perihilar subsegmental atelectasis versus scar. Electronically signed by: Jamarcus Lewis (March 23, 2021 10:39:49) Opioid Opioid Risk Tool Age (Mohsen box if 16-45): No History of Preadolescent Sexual Abuse: No Total: 0 Total Score Risk Category: Low Risk Copyright: Luis Armando BUCKLEY predicting aberrant behaviors Diagnosis Discharge Problem: Altered mental status Qualifiers: Altered mental status type: unspecified Qualified Code(s): R41.82 - Altered mental status, unspecified
--- NOTE | 2021-03-23 10:41 | RAD ---
HISTORYAMSSTUDYCHEST, 1 [id number]/16/2020.TECHNIQUEAP view of the chestFINDINGSCardiac and mediastinal contours are within normal limits. Right perihilar subsegmental atelectasis versus scar. No consolidation. No definite pleural effusion or pneumothorax.IMPRESSIONRight perihilar subsegmental atelectasis versus scar.Electronically signed by: Jamarcus Lewis (March 23, 2021 10:39:49)
[2021-03-23 10:47] LABS: EOSINOPHILS # (AUTO) 0.1 x10^3/uL (0.0-0.2); MONOCYTES # (AUTO) 0.5 x10^3/uL (0.3-0.8)
[2021-03-23 10:48] LABS: BASOPHILS # (AUTO) 0.1 X10^3/uL (0.0-0.1); MEAN PLATELET VOLUME 9.5 fL (7.4-11.0)
--- NOTE | 2021-03-23 10:51 | CT ---
HISTORYAMSSTUDYBRAIN W/O [id number]/13/2019TECHNIQUEMultiple axial images of the head were performed from the skull base to the vertex using standard departmental protocol. Sagittal and coronal reformatted images were performed. Dose reduction techniques including Automated Exposure Control (AEC) and adjustment of mA and kV were utilized.FINDINGSNo evidence of acute territorial infarct. No acute intracranial hemorrhage. No evidence of intracranial mass or midline shift. No hydrocephalus. No abnormal intra or extra-axial fluid collections.The calvaria is intact. The bilateral mastoid air cells and visualized paranasal sinuses are well pneumatized. The bilateral orbits are unremarkable.IMPRESSIONNo acute intracranial findings.Electronically signed by: EBONY ROLDAN (March 23, 2021 10:48:49)
[2021-03-23 10:55] LABS: BASOPHILS % (AUTO) 0.6 % (0.2-1.0); EOSINOPHILS % (AUTO) 0.9 % (0.9-2.9); HEMOGLOBIN 13.7 g/dL (12.0-16.0); LYMPHOCYTES # (AUTO) 1.5 X10^3/uL (1.3-2.9); LYMPHOCYTES % (AUTO) 13.5 % (21.0-51.0); MEAN CORPUSCULAR HEMOGLOBIN 32.2 pg (27.0-34.0); MEAN CORPUSCULAR HGB CONC 35.1 g/dL (33.0-35.0); MEAN CORPUSCULAR VOLUME 91.8 fL (80.0-100.0); MONOCYTES % (AUTO) 4.7 % (0.0-13.0); NEUTROPHILS # (AUTO) 8.9 x10^3/uL (2.2-4.8); NEUTROPHILS % (AUTO) 80.3 % (42.0-75.0); PLATELET COUNT 181 X10^3/uL (150.0-450.0); RED BLOOD COUNT 4.25 X10^6/uL (3.5-5.4); RED CELL DISTRIBUTION WIDTH 12.7 % (11.6-16.5)
[2021-03-23 11:03] LABS: BLOOD UREA NITROGEN 25 mg/dL (7-18); CALCIUM 8.6 mg/dL (8.5-10.1); CARBON DIOXIDE 33.4 mmol/L (21-32); CHLORIDE 105 mmol/L (98-107); COR NA(FOR HYPERGLY) 142 mmol/L (136-145); CREATININE 1.03 mg/dL (0.55-1.02); SODIUM 142 mmol/L (136-145); TROPONIN I < 0.02 ng/mL (0-1.5); eGFR NON BLACK RACES 55 (>60)
[2021-03-23 11:04] LABS: WHITE BLOOD COUNT 12.5 X10^3/uL (3.6-10.0)
[2021-03-23 11:05] LABS: PLATELET MORPHOLOGY COMMENT NORMAL (NORMAL)
[2021-03-23 11:07] LABS: ALANINE AMINOTRANSFERASE 19 Units/L (12-78); ALBUMIN 3.3 g/dL (3.4-5.0); ALKALINE PHOSPHATASE 74 Units/L (46-116); ASPARTATE AMINO TRANSFERASE 20 Units/L (15-37); COR CA(FOR HYPOALB) 9.2 mg/dL (8.5-10.1); CREATINE KINASE 71 Units/L (26-192); CREATINE KINASE MB 2.1 ng/mL (0-4.0); TOTAL PROTEIN 6.6 g/dL (6.4-8.2)
[2021-03-23 11:43] LABS: APPEARANCE,URINE CLEAR (CLEAR); BILIRUBIN,URINE NEGATIVE (NEGATIVE); BLOOD/HEMOGLOBIN,URINE 2+ (NEGATIVE); COLOR,URINE YELLOW (YELLOW); GLUCOSE, URINE NEGATIVE (NEGATIVE); KETONES,URINE NEGATIVE (NEGATIVE); LEUKOCYTE ESTERASE ,URINE NEGATIVE (NEGATIVE); NITRITES,URINE NEGATIVE (NEGATIVE); PROTEIN,URINE 2+ (NEGATIVE); UROBILINOGEN,URINE NORMAL (NORMAL)
[2021-03-23 11:51] LABS: BACTERIA,URINE TRACE /HPF (NEGATIVE); GRANULAR CASTS,URINE FEW /LPF (NEGATIVE); HYALINE CASTS, URINE MODERATE /LPF (NEGATIVE); MUCUS,URINE NUMEROUS /HPF (NEGATIVE); SQUAMOUS EPITHELIAL CELL,UR FEW /HPF (NEGATIVE)
[2021-03-23] MEDS ORDERED: NS 1000 ML 1,000 ML ONE (13:35)
[2021-03-23] MEDS: NS 1000 ML 1,000 ML IV SCH (13:40)
[2021-03-23] MEDS ORDERED: RANITIDINE HCL 150 MG PO SCH (14:47)
[2021-03-23] MEDS ORDERED: HYDROCHLOROTHIAZIDE 12.5 MG CAP PO SCH (15:00)
[2021-03-23] MEDS: PEPCID TAB 20 MG PO SCH (20:52)
[2021-03-23] MEDS: PRAVACHOL PO SCH (20:52)
[2021-03-23] MEDS: SINEMET (PLAIN) 25/100 MG PO SCH (20:53)
[2021-03-23] MEDS: MEGACE ORAL SUSP 400 MG/10 ML PO SCH (20:53)
[2021-03-23] MEDS ORDERED: RESTORIL CAP 15 MG PO SCH (21:00)
[2021-03-24] MEDS: NS 1000 ML 1,000 ML IV SCH ×3 (03:56→16:30)
[2021-03-24 05:34] LABS: BASOPHILS % (AUTO) 0.6 % (0.2-1.0); EOSINOPHILS # (AUTO) 0.1 x10^3/uL (0.0-0.2); EOSINOPHILS % (AUTO) 1.5 % (0.9-2.9); HEMATOCRIT 33.6 % (36.0-47.0); LYMPHOCYTES # (AUTO) 1.5 X10^3/uL (1.3-2.9); LYMPHOCYTES % (AUTO) 23.8 % (21.0-51.0); MEAN CORPUSCULAR HGB CONC 34.9 g/dL (33.0-35.0); MEAN CORPUSCULAR VOLUME 91.7 fL (80.0-100.0); MEAN PLATELET VOLUME 9.2 fL (7.4-11.0); MONOCYTES # (AUTO) 0.4 x10^3/uL (0.3-0.8); MONOCYTES % (AUTO) 5.7 % (0.0-13.0); NEUTROPHILS # (AUTO) 4.2 x10^3/uL (2.2-4.8); NEUTROPHILS % (AUTO) 68.4 % (42.0-75.0); PLATELET COUNT 177 X10^3/uL (150.0-450.0); RED BLOOD COUNT 3.67 X10^6/uL (3.5-5.4); RED CELL DISTRIBUTION WIDTH 13.1 % (11.6-16.5); WHITE BLOOD COUNT 6.2 X10^3/uL (3.6-10.0)
[2021-03-24 05:40] LABS: ALANINE AMINOTRANSFERASE 8 Units/L (12-78); ALBUMIN 2.8 g/dL (3.4-5.0); ALKALINE PHOSPHATASE 63 Units/L (46-116); ASPARTATE AMINO TRANSFERASE 19 Units/L (15-37); BLOOD UREA NITROGEN 21 mg/dL (7-18); CALCIUM 8.2 mg/dL (8.5-10.1); CHLORIDE 111 mmol/L (98-107); COR CA(FOR HYPOALB) 9.2 mg/dL (8.5-10.1); COR NA(FOR HYPERGLY) 146 mmol/L (136-145); CREATININE 0.93 mg/dL (0.55-1.02); SODIUM 146 mmol/L (136-145); TOTAL PROTEIN 5.8 g/dL (6.4-8.2); eGFR NON BLACK RACES > 60 (>60)
[2021-03-24 06:05] LABS: HEMOGLOBIN 11.7 g/dL (12.0-16.0)
--- NOTE | 2021-03-24 06:21 | RAD ---
HISTORYAMSSTUDYAP [id number]/14/2021FINDINGSThe heart is normal in size and the aorta is mildly dilated, accentuated by marked patient rotation. Similar appearance of linear density right midlung consistent with atelectasis/fibrosis. Otherwise, lungs are clear. There is no evidence for developing pneumonia, pulmonary edema or pleural fluid.IMPRESSIONNo interval change or new abnormality considering positional differences.Electronically signed by: BOO FOFANA (March 24, 2021 06:18:43)
[2021-03-24] MEDS ORDERED: MAGNESIUM SULFATE 1 GRAM/100 mL PREMIX 1 GM/100 ML BAG IV PRN (06:30)
[2021-03-24] MEDS ORDERED: POTASSIUM CHL 40 MEQ/NS 0.45% 500 ML IV PRN (06:30)
[2021-03-24] MEDS ORDERED: K-RIDER 10 MEQ/NS 100 ML 10 MEQ/100 ML BAG IV PRN (06:30)
[2021-03-24] MEDS ORDERED: POTASSIUM CHL 60 MEQ/NS 0.45% 500 ML IV PRN (06:30)
[2021-03-24] MEDS ORDERED: MICRO K EXTEN CAP 10 MEQ PO PRN (06:30)
[2021-03-24] MEDS ORDERED: KLOR-CON PO PRN (06:30)
[2021-03-24] MEDS ORDERED: POTASSIUM CHLORIDE LIQ 20 MEQ UDC PO PRN (06:30)
[2021-03-24] MEDS ORDERED: ZESTRIL TAB 20 MG PO SCH (09:00)
[2021-03-24] MEDS: MEGACE ORAL SUSP 400 MG/10 ML PO SCH ×2 (09:18→20:19)
[2021-03-24] MEDS: PROzac PO SCH ×2 (09:19→14:40)
[2021-03-24] MEDS ORDERED: ZESTRIL TAB 20 MG ONE ×2 (10:16→11:00)
[2021-03-24] MEDS: SINEMET (PLAIN) 25/100 MG PO SCH ×4 (10:24→20:15)
[2021-03-24] MEDS: SYNTHROID 50 mcg TAB PO SCH ×3 (10:24→14:40)
[2021-03-24] MEDS: PEPCID TAB 20 MG PO SCH ×4 (10:24→20:14)
[2021-03-24] MEDS: HYDROCHLOROTHIAZIDE 12.5 MG CAP PO SCH ×2 (10:25→12:42)
[2021-03-24] MEDS ORDERED: NS 1000 ML 500 ML IV ONE (11:05)
[2021-03-24] MEDS: VASOTEC INJ 2.5 MG VIAL IVP PRN ×2 (12:25→20:29)
[2021-03-24] MEDS: ZESTRIL TAB 40 MG PO SCH (12:43)
[2021-03-24] MEDS ORDERED: VASOTEC INJ 2.5 MG VIAL IVP ONE (13:41)
[2021-03-24] MEDS: K-DUR TAB 20 MEQ PO PRN (18:12)
[2021-03-24] MEDS: PRAVACHOL PO SCH (20:15)
[2021-03-24] MEDS ORDERED: MELATONIN PO SCH (21:00)
[2021-03-25] MEDS: VASOTEC INJ 2.5 MG VIAL IVP PRN (03:51)
[2021-03-25] MEDS: NS 1000 ML 1,000 ML IV SCH (04:05)
[2021-03-25 06:45] LABS: BASOPHILS # (AUTO) 0.1 X10^3/uL (0.0-0.1); BASOPHILS % (AUTO) 0.5 % (0.2-1.0); EOSINOPHILS # (AUTO) 0.1 x10^3/uL (0.0-0.2); EOSINOPHILS % (AUTO) 1.3 % (0.9-2.9); HEMATOCRIT 32.9 % (36.0-47.0); HEMOGLOBIN 11.4 g/dL (12.0-16.0); LYMPHOCYTES # (AUTO) 2.1 X10^3/uL (1.3-2.9); MEAN CORPUSCULAR HEMOGLOBIN 31.9 pg (27.0-34.0); MEAN CORPUSCULAR HGB CONC 34.8 g/dL (33.0-35.0); MEAN CORPUSCULAR VOLUME 91.7 fL (80.0-100.0); MEAN PLATELET VOLUME 8.8 fL (7.4-11.0); MONOCYTES # (AUTO) 0.5 x10^3/uL (0.3-0.8); NEUTROPHILS # (AUTO) 7.3 x10^3/uL (2.2-4.8); NEUTROPHILS % (AUTO) 72.2 % (42.0-75.0); PLATELET COUNT 172 X10^3/uL (150.0-450.0); RED BLOOD COUNT 3.59 X10^6/uL (3.5-5.4); RED CELL DISTRIBUTION WIDTH 13.1 % (11.6-16.5); WHITE BLOOD COUNT 10.1 X10^3/uL (3.6-10.0)
[2021-03-25 06:54] LABS: ALANINE AMINOTRANSFERASE 8 Units/L (12-78); ALBUMIN 2.8 g/dL (3.4-5.0); ALKALINE PHOSPHATASE 64 Units/L (46-116); ASPARTATE AMINO TRANSFERASE 18 Units/L (15-37); BLOOD UREA NITROGEN 18 mg/dL (7-18); CALCIUM 8.2 mg/dL (8.5-10.1); CARBON DIOXIDE 28.2 mmol/L (21-32); CHLORIDE 111 mmol/L (98-107); COR CA(FOR HYPOALB) 9.2 mg/dL (8.5-10.1); CREATININE 0.87 mg/dL (0.55-1.02); SODIUM 145 mmol/L (136-145); TOTAL PROTEIN 5.8 g/dL (6.4-8.2); eGFR NON BLACK RACES > 60 (>60)
[2021-03-25] MEDS: PEPCID TAB 20 MG PO SCH (08:57)
[2021-03-25] MEDS: SINEMET (PLAIN) 25/100 MG PO SCH (08:58)
[2021-03-25] MEDS: SYNTHROID 50 mcg TAB PO SCH (08:58)
[2021-03-25] MEDS: ZESTRIL TAB 40 MG PO SCH (08:58)
[2021-03-25] MEDS: HYDROCHLOROTHIAZIDE 12.5 MG CAP PO SCH (08:58)
[2021-03-25] MEDS: PROzac PO SCH (08:58)
[2021-03-25] MEDS: K-DUR TAB 20 MEQ PO PRN (08:59)
[2021-03-25 09:02] VITALS: BP 186/84
[2021-03-25] MEDS: MEGACE ORAL SUSP 400 MG/10 ML PO SCH (09:02)
[2021-03-25] MEDS ORDERED: MACROBID CAP 100 MG EXT REL PO ONE (12:56)
[2021-03-25] MEDS ORDERED: MACROBID CAP 100 MG EXT REL PO SCH (13:00)
== END 2021-03-25 14:11 | disposition home or self-care (01) ==
LOC: MED/SURG 09:32 → ER 09:32 → MED/SURG 14:33
PROVIDERS: ADMIT Obstetrics & Gynecology Obstetrics; ATTEND Internal Medicine
DX: G40.909 Epilepsy, unspecified, not intractable, without status epilepticus; R41.82 Altered mental status, unspecified; N39.0 Urinary tract infection, site not specified; R00.1 Bradycardia, unspecified; R94.31 Abnormal electrocardiogram [ECG] [EKG]; G20 Parkinson's disease; R13.11 Dysphagia, oral phase; R55 Syncope and collapse; I95.89 Other hypotension; E86.0 Dehydration

== ENCOUNTER 2021-07-23 21:55 | Observation (INO) ==
--- NOTE | 2021-07-23 22:26 | DR.GENAD ---
HPI Time Seen Time Seen by Provider: 07/23/21 22:19 PCP Primary Care Physician: asba Complaint/Symptoms Chief Complaint Doctors Comments: covid pos pt arrived via EMS. not responsive. moving all ext x 4. O2 sats > 95% Chief Complaint:: pt is a covid positive pt with failure to thrive and emaciated COVID-19 Coronavirus risk:travel/contact w/high risk person: Yes Has patient experienced Coronavirus symptoms: Yes Coronavirus symptoms experienced: Coughing Source History Provided: EMS Mode of Arrival Mode of Arrival: EMS Timing Onset of Chief Complaint: 07/08/21 PMH PMH Past Medical History: Yes Past Medical History: Dementia, GERD and Hypertension Past Surgical History: No Surgical History: No History Family History History of Family Medical Conditions: Yes Family Medical History: Diabetes Mellitus, Cancer and Hypertension Social History Does any household member use tobacco: No Alcohol Use: None Do you use any recreational Drugs:: No Lives With: Family Lives Where: Home Travel Risk Coronavirus risk:travel/contact w/high risk person: Yes Has patient experienced Coronavirus symptoms: Yes Coronavirus symptoms experienced: Coughing Infectious screening In the last 2 months have you had wt loss of >10#?: YES Have you traveled outside the country in the last 6 months?: No Isolation: Droplet ROS Review of Systems Unable to Obtain Due To: Altered mental status and Dementia PE Vital Signs Vitals: Temperature 98 F Pulse Rate 78 Respiratory Rate 16 Blood Pressure [Left Calf] 186/84 Blood Pressure 196/98 O2 Sat by Pulse Oximetry 90 General General Appearance: Obtunded, In Distress and Cachectic Head Head Exam: Normal Inspection and Atraumatic Eyes Eye exam: PERRL and EOMI ENT ENT Exam: Mucous Membranes Dry External Ear Exam: Normal External Inspection Neck Neck Exam: Normal Inspection and Full ROM Respiratory Respiratory Exam: negative Normal Lung Sounds Bilat and Accessory Muscle Use Respiratory Exam: Bilateral: Rales and Bilateral: Rhonchi Cardiovascular Cardiovascular Exam: Regular Rate and Normal Heart Sounds Abdominal Exam Abdominal Exam: Normal Inspection, Normal Bowel Sounds and Soft Extremities Extremities Exam: Normal Inspection Back Back Exam: Normal Inspection Neurologic Neurological Exam: Other (chronic dementia- not communicative- ) Skin Skin Exam: Warm, Dry and Intact COURSE Treatment Treatment: steroids, abx, IVF ROR Labs Reviewed Laboratory Results Reviewed?: Yes (elev dimer, pos UA) Result Diagrams: 07/23/21 23:07 07/23/21 23:07 Laboratory: WBC 7.4 X10^3/uL (3.6-10.0) 07/23/21 23:07 RBC 4.37 X10^6/uL (3.5-5.4) 07/23/21 23:07 Hgb 13.8 g/dL (12.0-16.0) 07/23/21 23:07 Hct 38.9 % (36.0-47.0) 07/23/21 23:07 MCV 88.9 fL (80.0-100.0) 07/23/21 23:07 MCH 31.5 pg (27.0-34.0) 07/23/21 23:07 MCHC 35.5 g/dL (33.0-35.0) H 07/23/21 23:07 RDW 13.1 % (11.6-16.5) 07/23/21 23:07 Plt Count 206 X10^3/uL (150.0-450.0) 07/23/21 23:07 Plt Count Comment Adequate (ADEQUATE) 07/23/21 23:07 MPV 8.3 fL (7.4-11.0) 07/23/21 23:07 Neut % (Auto) 79.8 % (42.0-75.0) H 07/23/21 23:07 Lymph % (Auto) 8.8 % (21.0-51.0) L 07/23/21 23:07 [place] % (Auto) 4.9 % (0.0-13.0) 07/23/21 23:07 Eos % (Auto) 0.5 % (0.9-2.9) L 07/23/21 23:07 Baso % (Auto) 6.0 % (0.2-1.0) H 07/23/21 23:07 Neut # (Auto) 5.9 x10^3/uL (2.2-4.8) H 07/23/21 23:07 Lymph # (Auto) 0.7 X10^3/uL (1.3-2.9) L 07/23/21 23:07 [place] # (Auto) 0.4 x10^3/uL (0.3-0.8) 07/23/21 23:07 Eos # (Auto) 0.0 x10^3/uL (0.0-0.2) 07/23/21 23:07 Baso # (Auto) 0.4 X10^3/uL (0.0-0.1) H 07/23/21 23:07 Absolute Nucleated RBC 0.1 /100WBC 07/23/21 23:07 Total Counted 100 07/23/21 23:07 Neutrophils % (Manual) 75 % (39-76) 07/23/21 23:07 Lymphocytes % (Manual) 14 % (13-43) 07/23/21 23:07 Monocytes % (Manual) 9 % (4-9) 07/23/21 23:07 Eosinophils % (Manual) 2 % (0-6) 07/23/21 23:07 Plt Morphology Comment Normal (NORMAL) 07/23/21 23:07 RBC Morphology Normal (NORMAL) 07/23/21 23:07 D-Dimer 1.78 ug/ml (0.0-0.57) H* 07/23/21 23:07 Sample Site Lr 07/23/21 22:21 ABG pH 7.480 (7.35-7.45) H 07/23/21 22:21 ABG pCO2 40.0 mmHg (35.0-45.0) 07/23/21 22:21 ABG pO2 76.0 mmHg (80.0-100.0) L 07/23/21 22:21 ABG HCO3 29.8 mmol/L (22-26) H 07/23/21 22:21 ABG O2 Saturation 96.0 % (90-100) 07/23/21 22:21 ABG Base Excess 5.8 mmol/L (-2.0-2.0) H 07/23/21 22:21 Haris Test Pos 07/23/21 22:21 A-a Gradient 24.0 mmHg 07/23/21 22:21 FiO2 21.0 07/23/21 22:21 Blood Gas Comments Marc well sw 07/23/21 22:21 Sodium 138 mmol/L (136-145) 07/23/21 23:07 Corrected Sodium TNP 07/23/21 23:07 Potassium 3.8 mmol/L (3.5-5.1) 07/23/21 23:07 Chloride 101 mmol/L (98-107) 07/23/21 23:07 Carbon Dioxide 29.5 mmol/L (21-32) 07/23/21 23:07 BUN 17 mg/dL (7-18) 07/23/21 23:07 Creatinine 1.02 mg/dL (0.55-1.02) 07/23/21 23:07 Est GFR (MDRD) Af Amer > 60 (>60) 07/23/21 23:07 Est GFR (MDRD) Non-Af 55 (>60) L 07/23/21 23:07 Glucose 106 mg/dL (65-99) H 07/23/21 23:07 Calcium 8.7 mg/dL (8.5-10.1) 07/23/21 23:07 Corrected Calcium 9.5 mg/dL (8.5-10.1) 07/23/21 23:07 Ferritin 588 ng/mL (8-252) H 07/23/21 23:07 Total Bilirubin 0.60 mg/dL (0.2-1.0) 07/23/21 23:07 AST 55 Units/L (15-37) H 07/23/21 23:07 ALT 44 Units/L (12-78) 07/23/21 23:07 Alkaline Phosphatase 82 Units/L (46-116) 07/23/21 23:07 C-Reactive Protein 36.30 mg/L (0-3.0) H 07/23/21 23:07 B-Natriuretic Peptide 59.4 pg/mL (0-79) 07/23/21 23:07 Total Protein 7.0 g/dL (6.4-8.2) 07/23/21 23:07 Albumin 3.0 g/dL (3.4-5.0) L 07/23/21 23:07 Globulin 4.0 g/dL (2.5-4.5) 07/23/21 23:07 Albumin/Globulin Ratio 0.8 Ratio (1.1-2.1) L 07/23/21 23:07 Specimen Type Catherized urine 07/24/21 02:10 Urine Color Yellow (YELLOW) 07/24/21 02:10 Urine Appearance Cloudy (CLEAR) 07/24/21 02:10 Urine pH 6.0 (5.0 - 8.0) 07/24/21 02:10 Ur Specific [place] 1.015 (1.000-1.030) 07/24/21 02:10 Urine Protein 3+ (NEGATIVE) 07/24/21 02:10 Urine Glucose (UA) Negative (NEGATIVE) 07/24/21 02:10 Urine Ketones Negative (NEGATIVE) 07/24/21 02:10 Urine Occult Blood 4+ (NEGATIVE) 07/24/21 02:10 Urine Nitrite Negative (NEGATIVE) 07/24/21 02:10 Urine Bilirubin Negative (NEGATIVE) 07/24/21 02:10 Urine Urobilinogen Normal (NORMAL) 07/24/21 02:10 Ur Leukocyte Esterase 3+ (NEGATIVE) 07/24/21 02:10 Urine RBC Tntc /HPF (0-3) A 07/24/21 02:10 Urine WBC Tntc /HPF (0-5) A 07/24/21 02:10 Ur Squamous Epith Cells Moderate /HPF (NEGATIVE) 07/24/21 02:10 Urine Bacteria 3+ /HPF (NEGATIVE) 07/24/21 02:10 Ur Culture Indicated? Yes/culture set up 07/24/21 02:10 SARS CoV-2 RNA Rapid LUANA Positive (NEGATIVE) A 07/24/21 02:43 Other Results Comments: CTA neg for PE. pos for covid pna. Opioid Opioid Risk Tool Age (Mohsen box if 16-45): No History of Preadolescent Sexual Abuse: No Total: 0 Total Score Risk Category: Low Risk Copyright: Luis Armando BUCKLEY predicting aberrant behaviors Diagnosis Discharge Problem: Acute UTI, COVID, Altered mental status ADDITIONAL NOTES Additional Notes Additional Notes: obs to Dr Segovia.
[2021-07-23] MEDS ORDERED: ATIVAN INJ 2 MG VIAL ONE (22:46)
[2021-07-23 23:05] LABS: ABG ALLEN TEST POS; ABG BASE EXCESS 5.8 mmol/L (-2.0-2.0); ABG HCO3 29.8 mmol/L (22-26)
[2021-07-23 23:29] LABS: ALANINE AMINOTRANSFERASE 44 Units/L (12-78); ALKALINE PHOSPHATASE 82 Units/L (46-116); ASPARTATE AMINO TRANSFERASE 55 Units/L (15-37); BLOOD UREA NITROGEN 17 mg/dL (7-18); CALCIUM 8.7 mg/dL (8.5-10.1); CARBON DIOXIDE 29.5 mmol/L (21-32); CHLORIDE 101 mmol/L (98-107); COR CA(FOR HYPOALB) 9.5 mg/dL (8.5-10.1); CREATININE 1.02 mg/dL (0.55-1.02); SODIUM 138 mmol/L (136-145); eGFR NON BLACK RACES 55 (>60)
[2021-07-23 23:34] LABS: BASOPHILS # (AUTO) 0.4 X10^3/uL (0.0-0.1); EOSINOPHILS % (AUTO) 0.5 % (0.9-2.9); HEMATOCRIT 38.9 % (36.0-47.0); HEMOGLOBIN 13.8 g/dL (12.0-16.0); LYMPHOCYTES # (AUTO) 0.7 X10^3/uL (1.3-2.9); LYMPHOCYTES % (AUTO) 8.8 % (21.0-51.0); MEAN CORPUSCULAR HEMOGLOBIN 31.5 pg (27.0-34.0); MEAN CORPUSCULAR HGB CONC 35.5 g/dL (33.0-35.0); MEAN CORPUSCULAR VOLUME 88.9 fL (80.0-100.0); MEAN PLATELET VOLUME 8.3 fL (7.4-11.0); MONOCYTES # (AUTO) 0.4 x10^3/uL (0.3-0.8); MONOCYTES % (AUTO) 4.9 % (0.0-13.0); NEUTROPHILS # (AUTO) 5.9 x10^3/uL (2.2-4.8); NEUTROPHILS % (AUTO) 79.8 % (42.0-75.0); PLATELET COUNT 206 X10^3/uL (150.0-450.0); RED BLOOD COUNT 4.37 X10^6/uL (3.5-5.4); RED CELL DISTRIBUTION WIDTH 13.1 % (11.6-16.5); WHITE BLOOD COUNT 7.4 X10^3/uL (3.6-10.0)
--- NOTE | 2021-07-23 23:46 | CT ---
STUDY: CT HEAD WITHOUT IV CONTRASTCOMPARISON: NoneTECHNIQUE: axial images were acquired of the head without IV contrast. Coronal and sagittal images were provided. All images were reviewed in a variety of windows and levels.LIMITATIONS: Please note that CT has low sensitivity and accuracy for identifying acute infarction. In addition, there are portions of the brain that are affected by beam hardening artifact which further greatly limits identification of an acute infarct.RADIATION REDUCTION TECHNIQUE: Automated exposure control, Adjustment of the mA and/or kV according to patient size, or iterative reconstruction techniques were used.HISTORY: pt is a covid positive pt with failure to thrive and emaciatedFINDINGS:There is diffuse cerebral atrophy with a regional distribution of low attenuation along the periventricular white matter most likely representing small vessel ischemic changes which are to a degree that would be considered within normal limits for the patient's stated age.There is no evidence of an acute intracranial bleed.There is no evidence of a mass or midline shift.There is no evidence of an extra-axial fluid collection.The jackson-white matter differentiation is within normal limits.The visualized bones are unremarkable.The visualized sinuses demonstrates air-fluid level in the maxillary sinus.The mastoid air cells are well-aerated.IMPRESSION:1. INVOLUTIONAL CHANGES ARE PRESENT WITH FINDINGS SUGGESTING SMALL VESSEL ISCHEMIC DISEASE WHICH IS TO A DEGREE THAT WOULD BE CONSIDERED WITHIN NORMAL LIMITS FOR THE PATIENT'S STATED AGE.2. THERE IS NO EVIDENCE OF ACUTE INTRACRANIAL BLEED.Electronically signed by: Darek Mckee (Jul 23, 2021 23:44:18)
[2021-07-23 23:48] LABS: PLATELET MORPHOLOGY COMMENT NORMAL (NORMAL)
--- NOTE | 2021-07-24 02:32 | CT ---
STUDY: CTA CHEST WITH IV CONTRASTCOMPARISON: NoneTECHNIQUE: axial images were acquired of the chest with IV contrast for a CT angiogram. Coronal and sagittal images were provided. All images were reviewed in a variety of windows and levels. 3D 8 mm thick MIPS images were provided.RADIATION REDUCTION TECHNIQUE: Automated exposure control, Adjustment of the mA and/or kV according to patient size, or iterative reconstruction techniques were used. 8 mm thick axial MIPS images were provided.HISTORY: COVID+. ELEVATED D-DIMERFINDINGS:CHEST:THYROID GLANDS: The thyroid gland is unremarkable.HEART AND VESSELS: The heart size is within normal limits.There is no evidence of pericardial effusion. Thoracic aorta is normal size without evidence of an aneurysm or dissection.Main pulmonary artery size is within normal limits. There are no filling defect seen within the visualized pulmonary arteries to suggest a pulmonary embolism.LYMPH NODES: There is no evidence of axillary, mediastinal, or hilar lymphadenopathy.AIRWAY: The trachea and mainstem bronchi are patent.No intraluminal lesions are seen.LUNGS: Multifocal consolidation is seen in the bilateral lower lobes with scattered areas of nonspecific ground-glass opacities in the right midlung zone. COPD/emphysema is noted. Scar-like changes are seen in the right upper lobe.ESOPHAGUS: The esophagus is grossly unremarkable.BONES: The visualized bones demonstrate degenerative changes. There are no concerning lytic or blastic lesions identified.UPPER ABDOMINAL STRUCTURES: The visualized upper abdominal structures are unremarkable.IMPRESSSION:1. No evidence of pulmonary embolism, thoracic aortic aneurysm, or dissection2. Heart size is normal and there is no evidence of pericardial effusion3. Multifocal consolidation is seen in the bilateral lower lobes and in right midlung zone. There is also nonspecific ground-glass opacity seen in the right midlung zone with COPD/emphysemaElectronically signed by: Darek Mckee (Jul 24, 2021 02:30:06)
[2021-07-24 02:34] LABS: BILIRUBIN,URINE NEGATIVE (NEGATIVE); BLOOD/HEMOGLOBIN,URINE 4+ (NEGATIVE); GLUCOSE, URINE NEGATIVE (NEGATIVE); KETONES,URINE NEGATIVE (NEGATIVE); LEUKOCYTE ESTERASE ,URINE 3+ (NEGATIVE); NITRITES,URINE NEGATIVE (NEGATIVE); PROTEIN,URINE 3+ (NEGATIVE); UROBILINOGEN,URINE NORMAL (NORMAL)
[2021-07-24] MEDS ORDERED: ZITHROMAX INJ 500 MG VIAL IV ONE (02:42)
[2021-07-24] MEDS ORDERED: DECADRON INJ ONE (02:42)
[2021-07-24] MEDS ORDERED: NS 250 ML IV 250 ML IV ONE (02:42)
[2021-07-24 02:44] LABS: APPEARANCE,URINE CLOUDY (CLEAR); BACTERIA,URINE 3+ /HPF (NEGATIVE); COLOR,URINE YELLOW (YELLOW); RBC,URINE TNTC /HPF (0-3); SQUAMOUS EPITHELIAL CELL,UR MODERATE /HPF (NEGATIVE)
[2021-07-24] MEDS: DECADRON INJ IVP ONE (02:50)
[2021-07-24] MEDS: ZITHROMAX INJ 500 MG VIAL 500 MG in NS 250 ML IV 250 ML IV SCH (02:51)
[2021-07-24] MEDS ORDERED: ROCEPHIN 1 GRAM IV PREMIX 1 G/50 ML IV.SOLN. IV ONE ×2 (03:15→03:25)
[2021-07-24] MEDS ORDERED: NS 1000 ML 1,000 ML ONE (03:25)
[2021-07-24] MEDS: NS 1000 ML 1,000 ML IV SCH ×2 (03:32→20:27)
[2021-07-24 04:02] LABS: BASOPHILS % (AUTO) 0.6 % (0.2-1.0); EOSINOPHILS % (AUTO) 0.4 % (0.9-2.9); HEMATOCRIT 37.7 % (36.0-47.0); HEMOGLOBIN 13.2 g/dL (12.0-16.0); LYMPHOCYTES # (AUTO) 0.8 X10^3/uL (1.3-2.9); LYMPHOCYTES % (AUTO) 11.1 % (21.0-51.0); MEAN CORPUSCULAR HEMOGLOBIN 31.4 pg (27.0-34.0); MEAN CORPUSCULAR HGB CONC 35.1 g/dL (33.0-35.0); MEAN CORPUSCULAR VOLUME 89.4 fL (80.0-100.0); MEAN PLATELET VOLUME 8.3 fL (7.4-11.0); MONOCYTES # (AUTO) 0.5 x10^3/uL (0.3-0.8); MONOCYTES % (AUTO) 6.3 % (0.0-13.0); NEUTROPHILS # (AUTO) 6.1 x10^3/uL (2.2-4.8); NEUTROPHILS % (AUTO) 81.6 % (42.0-75.0); PLATELET COUNT 201 X10^3/uL (150.0-450.0); RED BLOOD COUNT 4.21 X10^6/uL (3.5-5.4); RED CELL DISTRIBUTION WIDTH 12.9 % (11.6-16.5); WHITE BLOOD COUNT 7.4 X10^3/uL (3.6-10.0)
[2021-07-24 04:11] LABS: ALANINE AMINOTRANSFERASE 42 Units/L (12-78); ALBUMIN 2.9 g/dL (3.4-5.0); ALKALINE PHOSPHATASE 79 Units/L (46-116); ASPARTATE AMINO TRANSFERASE 48 Units/L (15-37); BLOOD UREA NITROGEN 16 mg/dL (7-18); CALCIUM 8.4 mg/dL (8.5-10.1); CARBON DIOXIDE 29.6 mmol/L (21-32); CHLORIDE 101 mmol/L (98-107); COR CA(FOR HYPOALB) 9.3 mg/dL (8.5-10.1); CREATININE 0.94 mg/dL (0.55-1.02); SODIUM 137 mmol/L (136-145); TOTAL PROTEIN 6.6 g/dL (6.4-8.2); eGFR NON BLACK RACES > 60 (>60)
[2021-07-24] MEDS: ZESTRIL TAB 40 MG PO SCH ×2 (06:28→09:57)
[2021-07-24] MEDS ORDERED: ZESTRIL TAB 40 MG ONE (06:28)
[2021-07-24] MEDS: PULMICORT NEB TX 0.5 MG NEB SCH ×2 (08:40→20:21)
[2021-07-24] MEDS: ACCUNEB 1.25 MG NEBULE NEB SCH ×3 (08:40→20:21)
[2021-07-24] MEDS ORDERED: REGEN-COV VIAL 10 ML, DRUG FILTER EXTENSION SET * 1 EA in NS 100 ML IV 100 ML IV ONE ×2 (09:54)
[2021-07-24] MEDS ORDERED: CATAPRES-TTS-1 TD SCH (10:00)
[2021-07-24] MEDS ORDERED: SOLU-Medrol 40 MG VIAL IVP ONE (10:15)
[2021-07-24] MEDS: CIPRO IV 400 MG PREMIX* 400 MG/200 ML IV.SOLN. IV SCH ×2 (10:16→20:26)
[2021-07-24] MEDS: PROzac PO SCH (10:29)
[2021-07-24] MEDS: PEPCID TAB 40 MG PO SCH (10:29)
[2021-07-24] MEDS: SYNTHROID 50 mcg TAB PO SCH (10:30)
[2021-07-24] MEDS: SINEMET (PLAIN) 25/100 MG PO SCH ×2 (10:30→22:48)
[2021-07-24] MEDS ORDERED: NS 100 ML IV 100 ML ONE (11:27)
--- NOTE | 2021-07-24 13:04 | DR.H&P ---
H&P - History & Physical for Day of: H&P Date: 07/24/21 - Chief Complaint Chief Complaint: UNRESPONSIVE, COVID POSITIVE - History of Present Illness History of Present Illness: IS A 80 YEAR OLD PATIENT OF OURS. SHE PRESENTED TO THE ER VIA EMS. FAMILY REPORTED THAT PATIENT WAS UNRESPONSIVE AT HOME SINCE EARLIER IN THE DAY. UPON ARRIVAL TO THE ER, PATIENT WAS MOVING ALL EXTREMITIES, BUT DID NOT VERBALLY RESPOND. PATIENTS DAUGHTER REPORTS THAT PATIENT RECENTLY TESTED POSITIVE FOR COVID-19. DAUGHTER REPORTS THAT PATIENT HAS HAD COUGH. HER PMH INCLUDES DEMENTIA, GERD, AND HTN. ON ARRIVAL TO THE ER, VITALS WERE 98.0-70-15-96%-175/89. LABS WERE OBTAINED. ABNORMAL LAB VALUES INCLUDE THE FOLLOWING: D-DIMER 1.78, FERRITIN 588, GLUCOSE 106, AST 55, CRP 36.30, ALBUMIN 3.0. URINALYSIS REVEALED: WBC TNTC, RBC TNTC, LEUKOCYTES 3+, BACTERIA 3+, OCCULT BLOOD 4+, PROTEIN 3+. COVID-19 POSITIVE. URINE CULTURE WAS SET UP. AN ABG WAS OBTAINED AND REVEALED: PH 7.480, PC02 40, P02 76, HC03 29.8, 02 SAT 96, BASE EXCESS 5.8, A-A GRADIENT 24, FI02 21.0. A BRAIN CT WAS OBTAINED AND REVEALED: 1. INVOLUTIONAL CHANGES ARE PRESENT WITH FINDINGS SUGGESTING SMALL VESSEL ISCHEMIC DISEASE WHICH IS TO A DEGREE THAT WOULD BE CONSIDERED WITHIN NORMAL LIMITS FOR THE PATIENT'S STATED AGE. 2. THERE IS NO EVIDENCE OF ACUTE INTRACRANIAL BLEED. A CHEST CTA WAS OBTAINED AND REVEALED: 1. No evidence of pulmonary embolism, thoracic aortic aneurysm, or dissection 2. Heart size is normal and there is no evidence of pericardial effusion 3. Multifocal consolidation is seen in the bilateral lower lobes and in right midlung zone. There is also nonspecific ground-glass opacity seen in the right midlung zone with COPD/emphysema. IN THE ER, SHE WAS GIVEN ROCEPHIN 1G IV X 1, DECADRON 4MG IV X 1. SHE WAS ADMITTED TO THE HOSPITAL FOR FURTHER EVALUATION AND TREATMENT OF UTI, COVID-19 PNEUMONIA, AND AMS. SHE WAS STARTED ON NORMAL SALINE AT KVO, CIPRO 400MG IV Q12H, ALBUTEROL NEB TX TID, PULMICORT NEB TX BID, AND A CATAPRES 0.1MG TD/HR PATCH. ORAL MEDICATIONS WILL BE HELD UNTIL SHE IS MORE ALERT. WE WILL GIVE HER A DOSE OF REGEN-COV. OTHERWISE, WE PLAN TO FOLLOW UP WITH AM LABS AND CHEST XRAY AND CONTINUE TO MONITOR. TIME SPENT ON CLINICAL ASSESSMENT, REVIEWING LABS AND IMAGING, DECISION MAKING, AND DOCUMENTATION GREATER THAN 75 MINUTES. - Past Medical History Past Medical History: Hypertension, Dementia, GERD - Past Surgical History Surgical History: No History - Family History Family Medical History: Diabetes Mellitus, Cancer, Hypertension - Social History Does any household member use tobacco: No Alcohol Use: None Drug Use: None - Medications Home Medications: No Known Allergies Allergy (Verified 03/23/21 09:58) INK Allergy (Uncoded 07/02/15 09:16) CONTINUE taking the following medications iron-folic acid-mv, min cmb#15 [Hemocyte-Plus] 106 cap PO DAILY 07/23/21 [History] - Review of Systems Constitutional: Other (unresponsive to verbal stimuli) Eyes: No Symptoms Reported ENT: No Symptoms Reported Respiratory: Cough Cardiovascular: No Symptoms Reported Gastrointestinal: No Symptoms Reported Genitourinary: No Symptoms Reported Musculoskeletal: No Symptoms Reported Skin: No Symptoms Reported Neurological: See HPI, Weakness - Physical Exam Vital Signs: Temperature 98.7 F Pulse Rate [Left Brachial] 85 Pulse Rate [Right Brachial] 77 Pulse Rate [Left Radial] 70 Pulse Rate 93 Respiratory Rate 20 Blood Pressure [Left Calf] 134/96 Blood Pressure 196/98 O2 Sat by Pulse Oximetry 96 Oriented: Unable to test Eyes: Normal Ear: Normal Nose: Normal Throat: Normal Respiratory: Diminished Throughout Cardiovascular: Normal : Normal Auscultation: Bowel Sounds: Normal Palpation: Normal Tenderness: Diffuse Skin: Decreased Turgur Musculoskeletal: Normal Psychiatric: Normal Mood Description: Calm Affect: Normal - Assessment/Plan (1) Acute UTI Status: Acute Plan: admit, NORMAL SALINE AT KVO, CIPRO 400MG IV Q12H, ALBUTEROL NEB TX TID, PULMICORT NEB TX BID, AND A CATAPRES 0.1MG TD/HR PATCH. (2) Pneumonia due to COVID-19 virus Status: Acute (3) Altered mental status Qualifiers: Altered mental status type: transient alteration of awareness Qualified Code(s): R40.4 - Transient alteration of awareness Status: Acute - Allergies Allergies/Adverse Reactions: Allergies Allergy/AdvReac Type Severity Reaction Status Date / Time No Known Allergies Allergy Verified 03/23/21 09:58 INK Allergy Uncoded 07/02/15 09:16
[2021-07-24] MEDS ORDERED: CATAPRES-TTS-2 TD ONE (16:40)
[2021-07-24] MEDS ORDERED: CATAPRES-TTS-2 TD SCH (17:00)
[2021-07-24] MEDS: PRAVACHOL PO SCH (22:48)
[2021-07-25] MEDS: ZITHROMAX INJ 500 MG VIAL 500 MG in NS 250 ML IV 250 ML IV SCH (01:57)
[2021-07-25] MEDS: ZESTRIL TAB 40 MG PO SCH ×2 (04:41→10:43)
[2021-07-25] MEDS: ACCUNEB 1.25 MG NEBULE NEB SCH ×3 (05:00→20:10)
[2021-07-25] MEDS: NS 1000 ML 1,000 ML IV SCH ×2 (05:31→20:55)
[2021-07-25 06:17] LABS: BASOPHILS # (AUTO) 0.1 X10^3/uL (0.0-0.1); EOSINOPHILS # (AUTO) 0.1 x10^3/uL (0.0-0.2); EOSINOPHILS % (AUTO) 1.2 % (0.9-2.9); HEMATOCRIT 36.7 % (36.0-47.0); HEMOGLOBIN 12.7 g/dL (12.0-16.0); LYMPHOCYTES # (AUTO) 1.6 X10^3/uL (1.3-2.9); LYMPHOCYTES % (AUTO) 17.2 % (21.0-51.0); MEAN CORPUSCULAR HEMOGLOBIN 31.2 pg (27.0-34.0); MEAN CORPUSCULAR HGB CONC 34.6 g/dL (33.0-35.0); MEAN CORPUSCULAR VOLUME 90.3 fL (80.0-100.0); MEAN PLATELET VOLUME 8.1 fL (7.4-11.0); MONOCYTES # (AUTO) 0.8 x10^3/uL (0.3-0.8); MONOCYTES % (AUTO) 9.1 % (0.0-13.0); NEUTROPHILS # (AUTO) 6.6 x10^3/uL (2.2-4.8); NEUTROPHILS % (AUTO) 71.5 % (42.0-75.0); PLATELET COUNT 219 X10^3/uL (150.0-450.0); RED BLOOD COUNT 4.06 X10^6/uL (3.5-5.4); RED CELL DISTRIBUTION WIDTH 13.2 % (11.6-16.5); WHITE BLOOD COUNT 9.2 X10^3/uL (3.6-10.0)
[2021-07-25 06:32] LABS: ALANINE AMINOTRANSFERASE 38 Units/L (12-78); ALBUMIN 2.8 g/dL (3.4-5.0); ALKALINE PHOSPHATASE 74 Units/L (46-116); ASPARTATE AMINO TRANSFERASE 45 Units/L (15-37); BLOOD UREA NITROGEN 20 mg/dL (7-18); CALCIUM 8.7 mg/dL (8.5-10.1); CARBON DIOXIDE 28.9 mmol/L (21-32); CHLORIDE 103 mmol/L (98-107); COR CA(FOR HYPOALB) 9.7 mg/dL (8.5-10.1); SODIUM 137 mmol/L (136-145); TOTAL PROTEIN 6.4 g/dL (6.4-8.2); eGFR NON BLACK RACES 57 (>60)
--- NOTE | 2021-07-25 06:35 | RAD ---
HISTORYSOB, COVID+STUDYCHEST, 1 VIEWCOMPARISONCTA chest from 07/24/2021.TECHNIQUEAP view of the chestFINDINGSCardiac and mediastinal contours are within normal limits. Lungs are hyperexpanded. Similar appearance of mild scattered patchy airspace opacities. No pleural effusion or pneumothorax.IMPRESSIONMild patchy scattered airspace opacities consistent with pneumonia.Electronically signed by: Jamarcus Lewis (Jul 25, 2021 06:34:22)
[2021-07-25 06:59] LABS: BAND NEUTROPHILS % 1 % (0-10); METAMYELOCYTES % 1; PLATELET MORPHOLOGY COMMENT NORMAL (NORMAL)
[2021-07-25] MEDS: PULMICORT NEB TX 0.5 MG NEB SCH ×2 (07:35→20:10)
[2021-07-25 08:51] VITALS: BMI 13.4
[2021-07-25] MEDS: CIPRO IV 400 MG PREMIX* 400 MG/200 ML IV.SOLN. IV SCH ×2 (09:48→20:55)
[2021-07-25] MEDS: SOLU-Medrol 40 MG VIAL IVP SCH ×3 (09:48→21:05)
[2021-07-25] MEDS: SINEMET (PLAIN) 25/100 MG PO SCH ×2 (10:42→20:56)
[2021-07-25] MEDS: HEMOCYTE-PLUS PO SCH (10:42)
[2021-07-25] MEDS: PEPCID TAB 40 MG PO SCH (10:42)
[2021-07-25] MEDS: SYNTHROID 50 mcg TAB PO SCH (10:42)
[2021-07-25] MEDS: PROzac PO SCH (10:42)
[2021-07-25] MEDS: D5W 1000 ML IV 1,000 ML IV SCH (17:36)
[2021-07-25] MEDS: PRAVACHOL PO SCH (20:56)
[2021-07-26] MEDS: SOLU-Medrol 40 MG VIAL IVP SCH ×3 (05:32→22:00)
[2021-07-26] MEDS: ACCUNEB 1.25 MG NEBULE NEB SCH ×4 (06:03→20:01)
--- NOTE | 2021-07-26 06:03 | RAD ---
HISTORYSOB, COVID+STUDYCHEST, 1 VIEWCOMPARISONOne day prior.TECHNIQUEAP view of the chestFINDINGSCardiac and mediastinal contours are within normal limits. Mild scattered patchy opacities appear similar to prior. No definite pleural effusion or pneumothorax.IMPRESSIONNo significant change.Electronically signed by: Jamarcus Lewis (Jul 26, 2021 06:02:20)
[2021-07-26 06:05] LABS: BASOPHILS # (AUTO) 0.1 X10^3/uL (0.0-0.1); BASOPHILS % (AUTO) 0.5 % (0.2-1.0); EOSINOPHILS % (AUTO) 0.1 % (0.9-2.9); HEMATOCRIT 35.9 % (36.0-47.0); HEMOGLOBIN 12.8 g/dL (12.0-16.0); LYMPHOCYTES # (AUTO) 0.8 X10^3/uL (1.3-2.9); MEAN CORPUSCULAR HEMOGLOBIN 31.7 pg (27.0-34.0); MEAN CORPUSCULAR HGB CONC 35.8 g/dL (33.0-35.0); MEAN CORPUSCULAR VOLUME 88.6 fL (80.0-100.0); MEAN PLATELET VOLUME 8.4 fL (7.4-11.0); MONOCYTES # (AUTO) 0.4 x10^3/uL (0.3-0.8); MONOCYTES % (AUTO) 3.8 % (0.0-13.0); NEUTROPHILS # (AUTO) 8.7 x10^3/uL (2.2-4.8); NEUTROPHILS % (AUTO) 87.6 % (42.0-75.0); PLATELET COUNT 277 X10^3/uL (150.0-450.0); RED BLOOD COUNT 4.05 X10^6/uL (3.5-5.4); RED CELL DISTRIBUTION WIDTH 13.1 % (11.6-16.5)
[2021-07-26 06:07] LABS: ALANINE AMINOTRANSFERASE 12 Units/L (12-78); ALKALINE PHOSPHATASE 80 Units/L (46-116); ASPARTATE AMINO TRANSFERASE 42 Units/L (15-37); BLOOD UREA NITROGEN 19 mg/dL (7-18); CARBON DIOXIDE 28.4 mmol/L (21-32); CHLORIDE 100 mmol/L (98-107); COR CA(FOR HYPOALB) 9.8 mg/dL (8.5-10.1); COR NA(FOR HYPERGLY) 137 mmol/L (136-145); CREATININE 1.03 mg/dL (0.55-1.02); SODIUM 135 mmol/L (136-145); TOTAL PROTEIN 6.8 g/dL (6.4-8.2); eGFR NON BLACK RACES 55 (>60)
[2021-07-26] MEDS: D5W 1000 ML IV 1,000 ML IV SCH ×2 (06:07→18:59)
[2021-07-26] MEDS: PULMICORT NEB TX 0.5 MG NEB SCH ×2 (08:20→20:01)
[2021-07-26] MEDS: CIPRO IV 400 MG PREMIX* 400 MG/200 ML IV.SOLN. IV SCH ×2 (09:43→20:39)
[2021-07-26] MEDS: PEPCID TAB 40 MG PO SCH (09:45)
[2021-07-26] MEDS: HEMOCYTE-PLUS PO SCH (09:45)
[2021-07-26] MEDS: PROzac PO SCH (09:46)
[2021-07-26] MEDS: SINEMET (PLAIN) 25/100 MG PO SCH ×2 (09:46→20:40)
[2021-07-26] MEDS: ZESTRIL TAB 40 MG PO SCH (09:46)
[2021-07-26] MEDS: SYNTHROID 50 mcg TAB PO SCH (09:46)
--- NOTE | 2021-07-26 10:15 | PCM.PROG ---
Progress Note - Progress Note for Day of Date of Exam: 07/25/21 - Subjective Subjective: WAS ADMITTED ON 07/24/21 FOR TREATMENT OF UTI, PNEUMONIA DUE TO COVID-19, AND ALTERED MENTAL STATUS. SHE RECEIVED A DOSE OF REGEN-COV FOR TREATMENT OF COVID YESTERDAY. SHE HAS BEEN ON ROOM AIR WITH SATURATIONS REMAINING ABOVE 95%. TODAY, SHE IS LYING IN BED WITH EYES CLOSED ON MORNING ROUNDS. SHE DOES MOVE UPPER AND LOWER EXTREMITIES, BUT NOT TO COMMAND. SHE DOES NOT RESPOND VERBALLY WHEN SPOKEN TO. STAFF REPORTS THAT WHEN GIVEN THICKENED LIQUIDS, PATIENT DOES SWALLOW. HOWEVER, WHEN SHE IS GIVEN SOLIDS, PATIENT HOLDS FOODS IN HER MOUTH. ON EXAMINATION, HEART IS REGULAR IN RATE AND RHYTHM. BILATERAL LUNGS ARE NOTED TO HAVE DIMINISHED LUNG SOUNDS THROUGHOUT. ABDOMEN IS FLAT, SOFT, AND NON-TENDER WITH NORMAL BOWEL SOUNDS NOTED IN ALL QUADRANTS. HER VITALS THIS MORNING ARE: 98.5-70-20-98%-183/82. LABS WERE OBTAINED. ABNORMAL LAB VALUES INCLUDE THE FOLLOWING: BUN 20, AST 45, CRP 20.10, ALBUMIN 2.8. URINE CULTURE IS PENDING. CHEST XRAY WAS OBTAINED AND REVEALED: Mild patchy scattered airspace opacities consistent with pneumonia. SHE IS CURRENTLY RECEIVING NORMAL SALINE AT KVO, CIPRO 400MG IV Q12H, SOLU-MEDROL 40MG IV Q8H, CATAPRES 0.2MG/HR TD PATCH, ALBUTEROL NEBS TID, AND PULMICORT NEBS BID. HER ORAL MEDICATIONS HAVE BEEN HELD DUE TO PATIENT NOT BEING ALERT AND HOLDING SOLID FOODS. WE WILL CONVERT WHAT WE CAN TO IV MEDICATIONS. OTHERWISE, WE WILL CONTINUE WITH CURRENT PLAN OF CARE TODAY. WE WILL FOLLOW UP WITH AM LABS AND CHEST XRAY AND CONTINUE TO MONITOR. - Past Medical Family Social History Past Med/Fam/Surg Hx: No changes since H&P Allergies: Allergies No Known Allergies Allergy (Verified 03/23/21 09:58) INK Allergy (Uncoded 07/02/15 09:16) - Review of Systems ROS: No change since H&P - Vital Signs and I&O's Vital Signs: Temperature 98.1 F Pulse Rate [Left Brachial] 60 Pulse Rate [Right Brachial] 77 Pulse Rate [Left Radial] 70 Pulse Rate 60 Respiratory Rate 20 Blood Pressure [Left Arm] 180/84 Blood Pressure [Right Arm] 180/90 Blood Pressure [Left Calf] 180/90 Blood Pressure 196/98 O2 Sat by Pulse Oximetry 94 Intake and Output: Intake & Output 07/23/21 07/24/21 07/25/21 07/26/21 11:59 11:59 11:59 11:59 Intake Total 540 / 540 1968 1494 / 1494 Balance 540 / 540 1968 1494 / 1494 - Physical Exam Oriented: Unable to test Eyes: Normal Ear: Normal Nose: Normal Throat: Normal Respiratory: Generalized, Diminished Cardiovascular: Normal : Normal Auscultation: Bowel Sounds: Normal Palpation: Normal Tenderness: Diffuse Skin: Decreased Turgur Musculoskeletal: Normal Psychiatric: Normal Mood Description: Calm Affect: Normal Speech Pattern: Aphasic - Laboratory and Diagnostics Result Diagrams: 07/26/21 05:03 07/26/21 05:03 Labs: 07/24/21 02:10 Urine,Catheterized Urine Culture - Final Klebsiella Pneumoniae Laboratory WBC 10.0 X10^3/uL (3.6-10.0) 07/26/21 05:03 RBC 4.05 X10^6/uL (3.5-5.4) 07/26/21 05:03 Hgb 12.8 g/dL (12.0-16.0) 07/26/21 05:03 Hct 35.9 % (36.0-47.0) L 07/26/21 05:03 MCV 88.6 fL (80.0-100.0) 07/26/21 05:03 MCH 31.7 pg (27.0-34.0) 07/26/21 05:03 MCHC 35.8 g/dL (33.0-35.0) H 07/26/21 05:03 RDW 13.1 % (11.6-16.5) 07/26/21 05:03 Plt Count 277 X10^3/uL (150.0-450.0) 07/26/21 05:03 Plt Count Comment Adequate (ADEQUATE) 07/25/21 05:40 MPV 8.4 fL (7.4-11.0) 07/26/21 05:03 Neut % (Auto) 87.6 % (42.0-75.0) H 07/26/21 05:03 Lymph % (Auto) 8.0 % (21.0-51.0) L 07/26/21 05:03 [place] % (Auto) 3.8 % (0.0-13.0) 07/26/21 05:03 Eos % (Auto) 0.1 % (0.9-2.9) L 07/26/21 05:03 Baso % (Auto) 0.5 % (0.2-1.0) 07/26/21 05:03 Neut # (Auto) 8.7 x10^3/uL (2.2-4.8) H 07/26/21 05:03 Lymph # (Auto) 0.8 X10^3/uL (1.3-2.9) L 07/26/21 05:03 [place] # (Auto) 0.4 x10^3/uL (0.3-0.8) 07/26/21 05:03 Eos # (Auto) 0.0 x10^3/uL (0.0-0.2) 07/26/21 05:03 Baso # (Auto) 0.1 X10^3/uL (0.0-0.1) 07/26/21 05:03 Absolute Nucleated RBC 0.1 /100WBC 07/26/21 05:03 Total Counted 100 07/25/21 05:40 Neutrophils % (Manual) 70 % (39-76) 07/25/21 05:40 Band Neutrophils % 1 % (0-10) 07/25/21 05:40 Lymphocytes % (Manual) 18 % (13-43) 07/25/21 05:40 Monocytes % (Manual) 10 % (4-9) H 07/25/21 05:40 Eosinophils % (Manual) 2 % (0-6) 07/23/21 23:07 Metamyelocytes % 1 07/25/21 05:40 Plt Morphology Comment Normal (NORMAL) 07/25/21 05:40 RBC Morphology Normal (NORMAL) 07/25/21 05:40 D-Dimer 1.78 ug/ml (0.0-0.57) H* 07/23/21 23:07 Sample Site Lr 07/23/21 22:21 ABG pH 7.480 (7.35-7.45) H 07/23/21 22:21 ABG pCO2 40.0 mmHg (35.0-45.0) 07/23/21 22:21 ABG pO2 76.0 mmHg (80.0-100.0) L 07/23/21 22:21 ABG HCO3 29.8 mmol/L (22-26) H 07/23/21 22:21 ABG O2 Saturation 96.0 % (90-100) 07/23/21 22:21 ABG Base Excess 5.8 mmol/L (-2.0-2.0) H 07/23/21 22:21 Haris Test Pos 07/23/21 22:21 A-a Gradient 24.0 mmHg 07/23/21 22:21 FiO2 21.0 07/23/21 22:21 Blood Gas Comments Marc well sw 07/23/21 22:21 Sodium 135 mmol/L (136-145) L 07/26/21 05:03 Corrected Sodium 137 mmol/L (136-145) 07/26/21 05:03 Potassium 4.1 mmol/L (3.5-5.1) 07/26/21 05:03 Chloride 100 mmol/L (98-107) 07/26/21 05:03 Carbon Dioxide 28.4 mmol/L (21-32) 07/26/21 05:03 BUN 19 mg/dL (7-18) H 07/26/21 05:03 Creatinine 1.03 mg/dL (0.55-1.02) H 07/26/21 05:03 Est GFR (MDRD) Af Amer > 60 (>60) 07/26/21 05:03 Est GFR (MDRD) Non-Af 55 (>60) L 07/26/21 05:03 Glucose 168 mg/dL (65-99) H 07/26/21 05:03 POC Glucose (mg/dL) 161 mg/dL (65-99) H 07/26/21 05:05 Calcium 9.0 mg/dL (8.5-10.1) 07/26/21 05:03 Corrected Calcium 9.8 mg/dL (8.5-10.1) 07/26/21 05:03 Ferritin 588 ng/mL (8-252) H 07/23/21 23:07 Total Bilirubin 0.40 mg/dL (0.2-1.0) 07/26/21 05:03 AST 42 Units/L (15-37) H 07/26/21 05:03 ALT 12 Units/L (12-78) 07/26/21 05:03 Alkaline Phosphatase 80 Units/L (46-116) 07/26/21 05:03 C-Reactive Protein 14.70 mg/L (0-3.0) H 07/26/21 05:03 B-Natriuretic Peptide 59.4 pg/mL (0-79) 07/23/21 23:07 Total Protein 6.8 g/dL (6.4-8.2) 07/26/21 05:03 Albumin 3.0 g/dL (3.4-5.0) L 07/26/21 05:03 Globulin 3.8 g/dL (2.5-4.5) 07/26/21 05:03 Albumin/Globulin Ratio 0.8 Ratio (1.1-2.1) L 07/26/21 05:03 Specimen Type Catherized urine 07/24/21 02:10 Urine Color Yellow (YELLOW) 07/24/21 02:10 Urine Appearance Cloudy (CLEAR) 07/24/21 02:10 Urine pH 6.0 (5.0 - 8.0) 07/24/21 02:10 Ur Specific [place] 1.015 (1.000-1.030) 07/24/21 02:10 Urine Protein 3+ (NEGATIVE) 07/24/21 02:10 Urine Glucose (UA) Negative (NEGATIVE) 07/24/21 02:10 Urine Ketones Negative (NEGATIVE) 07/24/21 02:10 Urine Occult Blood 4+ (NEGATIVE) 07/24/21 02:10 Urine Nitrite Negative (NEGATIVE) 07/24/21 02:10 Urine Bilirubin Negative (NEGATIVE) 07/24/21 02:10 Urine Urobilinogen Normal (NORMAL) 07/24/21 02:10 Ur Leukocyte Esterase 3+ (NEGATIVE) 07/24/21 02:10 Urine RBC Tntc /HPF (0-3) A 07/24/21 02:10 Urine WBC Tntc /HPF (0-5) A 07/24/21 02:10 Ur Squamous Epith Cells Moderate /HPF (NEGATIVE) 07/24/21 02:10 Urine Bacteria 3+ /HPF (NEGATIVE) 07/24/21 02:10 Ur Culture Indicated? Yes/culture set up 07/24/21 02:10 SARS CoV-2 RNA Rapid LUANA Positive (NEGATIVE) A 07/24/21 02:43 - Plan (1) Acute UTI Status: Acute Plan: NORMAL SALINE AT KVO, CIPRO 400MG IV Q12H, SOLU-MEDROL 40MG IV Q8H, CATAPRES 0.2MG/HR TD PATCH, ALBUTEROL NEBS TID, AND PULMICORT NEBS BID. (2) Pneumonia due to COVID-19 virus Status: Acute (3) Altered mental status Status: Acute Qualifiers: Altered mental status type: transient alteration of awareness Qualified Code(s): R40.4 - Transient alteration of awareness
--- NOTE | 2021-07-26 10:56 | PCM.PROG ---
Progress Note - Progress Note for Day of Date of Exam: 07/26/21 - Subjective Subjective: WAS ADMITTED ON 07/24/21 FOR TREATMENT OF UTI, PNEUMONIA DUE TO COVID-19, AND ALTERED MENTAL STATUS. SHE RECEIVED A DOSE OF REGEN-COV FOR TREATMENT OF COVID ON FRIDAY. SHE HAS BEEN ON ROOM AIR WITH SATURATIONS REMAINING ABOVE 95%. TODAY, SHE IS LYING IN BED WITH EYES OPEN ON MORNING R OUNDS. SHE DOES MOVE UPPER AND LOWER EXTREMITIES, BUT NOT TO COMMAND. SHE DOES NOT RESPOND VERBALLY WHEN SPOKEN TO. STAFF REPORTS THAT SHE HAS TOLERATED SOLIDS BETTER AND HAS NOT BEEN HOLDING FOOD IN HER MOUTH. ON EXAMINATION, HEART IS REGULAR IN RATE AND RHYTHM. BILATERAL LUNGS ARE NOTED TO HAVE DIMINISHED LUNG SOUNDS THROUGHOUT. ABDOMEN IS FLAT, SOFT, AND NON-TENDER WITH NORMAL BOWEL SOUNDS NOTED IN ALL QUADRANTS. HER VITALS THIS MORNING ARE: 97.3-60-11-100%-156/73. LABS WERE OBTAINED. ABNORMAL LAB VALUES INCLUDE THE FOLLOWING: HCT 35.9, SODIUM 135, BUN 19, CREATININE 1.03, GLUCOSE 168, AST 42, CRP 14.70, ALBUMIN 3.0. URINE CULTURE REPORTS GROWTH OF KLEBSIELLA PNEUMONIAE. IT IS SENSITIVE TO THE CIPRO THAT SHE IS CURRENTLY RECEIVING. CHEST XRAY WAS OBTAINED AND REVEALED: Cardiac and mediastinal contours are within normal limits. Mild scattered patchy opacities appear similar to prior. No definite pleural effusion or pneumothorax. SHE IS CURRENTLY RECEIVING NORMAL SALINE AT KVO, CIPRO 400MG IV Q12H, SOLU-MEDROL 40MG IV Q8H, CATAPRES 0.2MG/HR TD PATCH, ALBUTEROL NEBS TID, AND PULMICORT NEBS BID. WE WILL CONTINUE WITH CURRENT PLAN OF CARE TODAY. WE WILL FOLLOW UP WITH AM LABS AND CHEST XRAY AND CONTINUE TO MONITOR. TIME SPENT ON CLINICAL ASSESSMENT, REVIEWING LABS AND IMAGING, DECISION MAKING, AND DOCUMENTATION GREATER THAN 45 MINUTES. - Past Medical Family Social History Past Med/Fam/Surg Hx: No changes since H&P Allergies: Allergies No Known Allergies Allergy (Verified 03/23/21 09:58) INK Allergy (Uncoded 07/02/15 09:16) - Review of Systems ROS: No change since H&P - Vital Signs and I&O's Vital Signs: Temperature 97.3 F Pulse Rate [Left Brachial] 60 Pulse Rate [Right Brachial] 77 Pulse Rate [Left Radial] 70 Pulse Rate 60 Respiratory Rate 11 Blood Pressure [Left Arm] 156/73 Blood Pressure [Right Arm] 180/90 Blood Pressure [Left Calf] 180/90 Blood Pressure 196/98 O2 Sat by Pulse Oximetry 100 Intake and Output: Intake & Output 07/23/21 07/24/21 07/25/21 07/26/21 11:59 11:59 11:59 11:59 Intake Total 540 / 540 1968 1494 / 1494 Balance 540 / 540 1968 1494 / 1494 - Physical Exam Oriented: Unable to test Eyes: Normal Ear: Normal Nose: Normal Throat: Normal Respiratory: Generalized, Diminished Cardiovascular: Normal : Normal Auscultation: Bowel Sounds: Normal Tenderness: Diffuse Skin: Decreased Turgur Musculoskeletal: Normal Psychiatric: Normal Mood Description: Calm Affect: Normal Speech Pattern: Aphasic - Laboratory and Diagnostics Result Diagrams: 07/26/21 05:03 07/26/21 05:03 Labs: 07/24/21 02:10 Urine,Catheterized Urine Culture - Final Klebsiella Pneumoniae Laboratory WBC 10.0 X10^3/uL (3.6-10.0) 07/26/21 05:03 RBC 4.05 X10^6/uL (3.5-5.4) 07/26/21 05:03 Hgb 12.8 g/dL (12.0-16.0) 07/26/21 05:03 Hct 35.9 % (36.0-47.0) L 07/26/21 05:03 MCV 88.6 fL (80.0-100.0) 07/26/21 05:03 MCH 31.7 pg (27.0-34.0) 07/26/21 05:03 MCHC 35.8 g/dL (33.0-35.0) H 07/26/21 05:03 RDW 13.1 % (11.6-16.5) 07/26/21 05:03 Plt Count 277 X10^3/uL (150.0-450.0) 07/26/21 05:03 Plt Count Comment Adequate (ADEQUATE) 07/25/21 05:40 MPV 8.4 fL (7.4-11.0) 07/26/21 05:03 Neut % (Auto) 87.6 % (42.0-75.0) H 07/26/21 05:03 Lymph % (Auto) 8.0 % (21.0-51.0) L 07/26/21 05:03 [place] % (Auto) 3.8 % (0.0-13.0) 07/26/21 05:03 Eos % (Auto) 0.1 % (0.9-2.9) L 07/26/21 05:03 Baso % (Auto) 0.5 % (0.2-1.0) 07/26/21 05:03 Neut # (Auto) 8.7 x10^3/uL (2.2-4.8) H 07/26/21 05:03 Lymph # (Auto) 0.8 X10^3/uL (1.3-2.9) L 07/26/21 05:03 [place] # (Auto) 0.4 x10^3/uL (0.3-0.8) 07/26/21 05:03 Eos # (Auto) 0.0 x10^3/uL (0.0-0.2) 07/26/21 05:03 Baso # (Auto) 0.1 X10^3/uL (0.0-0.1) 07/26/21 05:03 Absolute Nucleated RBC 0.1 /100WBC 07/26/21 05:03 Total Counted 100 07/25/21 05:40 Neutrophils % (Manual) 70 % (39-76) 07/25/21 05:40 Band Neutrophils % 1 % (0-10) 07/25/21 05:40 Lymphocytes % (Manual) 18 % (13-43) 07/25/21 05:40 Monocytes % (Manual) 10 % (4-9) H 07/25/21 05:40 Eosinophils % (Manual) 2 % (0-6) 07/23/21 23:07 Metamyelocytes % 1 07/25/21 05:40 Plt Morphology Comment Normal (NORMAL) 07/25/21 05:40 RBC Morphology Normal (NORMAL) 07/25/21 05:40 D-Dimer 1.78 ug/ml (0.0-0.57) H* 07/23/21 23:07 Sample Site Lr 07/23/21 22:21 ABG pH 7.480 (7.35-7.45) H 07/23/21 22:21 ABG pCO2 40.0 mmHg (35.0-45.0) 07/23/21 22:21 ABG pO2 76.0 mmHg (80.0-100.0) L 07/23/21 22:21 ABG HCO3 29.8 mmol/L (22-26) H 07/23/21 22:21 ABG O2 Saturation 96.0 % (90-100) 07/23/21 22:21 ABG Base Excess 5.8 mmol/L (-2.0-2.0) H 07/23/21 22:21 Haris Test Pos 07/23/21 22:21 A-a Gradient 24.0 mmHg 07/23/21 22:21 FiO2 21.0 07/23/21 22:21 Blood Gas Comments Marc well sw 07/23/21 22:21 Sodium 135 mmol/L (136-145) L 07/26/21 05:03 Corrected Sodium 137 mmol/L (136-145) 07/26/21 05:03 Potassium 4.1 mmol/L (3.5-5.1) 07/26/21 05:03 Chloride 100 mmol/L (98-107) 07/26/21 05:03 Carbon Dioxide 28.4 mmol/L (21-32) 07/26/21 05:03 BUN 19 mg/dL (7-18) H 07/26/21 05:03 Creatinine 1.03 mg/dL (0.55-1.02) H 07/26/21 05:03 Est GFR (MDRD) Af Amer > 60 (>60) 07/26/21 05:03 Est GFR (MDRD) Non-Af 55 (>60) L 07/26/21 05:03 Glucose 168 mg/dL (65-99) H 07/26/21 05:03 POC Glucose (mg/dL) 161 mg/dL (65-99) H 07/26/21 05:05 Calcium 9.0 mg/dL (8.5-10.1) 07/26/21 05:03 Corrected Calcium 9.8 mg/dL (8.5-10.1) 07/26/21 05:03 Ferritin 588 ng/mL (8-252) H 07/23/21 23:07 Total Bilirubin 0.40 mg/dL (0.2-1.0) 07/26/21 05:03 AST 42 Units/L (15-37) H 07/26/21 05:03 ALT 12 Units/L (12-78) 07/26/21 05:03 Alkaline Phosphatase 80 Units/L (46-116) 07/26/21 05:03 C-Reactive Protein 14.70 mg/L (0-3.0) H 07/26/21 05:03 B-Natriuretic Peptide 59.4 pg/mL (0-79) 07/23/21 23:07 Total Protein 6.8 g/dL (6.4-8.2) 07/26/21 05:03 Albumin 3.0 g/dL (3.4-5.0) L 07/26/21 05:03 Globulin 3.8 g/dL (2.5-4.5) 07/26/21 05:03 Albumin/Globulin Ratio 0.8 Ratio (1.1-2.1) L 07/26/21 05:03 Specimen Type Catherized urine 07/24/21 02:10 Urine Color Yellow (YELLOW) 07/24/21 02:10 Urine Appearance Cloudy (CLEAR) 07/24/21 02:10 Urine pH 6.0 (5.0 - 8.0) 07/24/21 02:10 Ur Specific [place] 1.015 (1.000-1.030) 07/24/21 02:10 Urine Protein 3+ (NEGATIVE) 07/24/21 02:10 Urine Glucose (UA) Negative (NEGATIVE) 07/24/21 02:10 Urine Ketones Negative (NEGATIVE) 07/24/21 02:10 Urine Occult Blood 4+ (NEGATIVE) 07/24/21 02:10 Urine Nitrite Negative (NEGATIVE) 07/24/21 02:10 Urine Bilirubin Negative (NEGATIVE) 07/24/21 02:10 Urine Urobilinogen Normal (NORMAL) 07/24/21 02:10 Ur Leukocyte Esterase 3+ (NEGATIVE) 07/24/21 02:10 Urine RBC Tntc /HPF (0-3) A 07/24/21 02:10 Urine WBC Tntc /HPF (0-5) A 07/24/21 02:10 Ur Squamous Epith Cells Moderate /HPF (NEGATIVE) 07/24/21 02:10 Urine Bacteria 3+ /HPF (NEGATIVE) 07/24/21 02:10 Ur Culture Indicated? Yes/culture set up 07/24/21 02:10 SARS CoV-2 RNA Rapid LUANA Positive (NEGATIVE) A 07/24/21 02:43 - Plan (1) Acute UTI Status: Acute Plan: NORMAL SALINE AT KVO, CIPRO 400MG IV Q12H, SOLU-MEDROL 40MG IV Q8H, CATAPRES 0.2MG/HR TD PATCH, ALBUTEROL NEBS TID, AND PULMICORT NEBS BID. (2) Pneumonia due to COVID-19 virus Status: Acute (3) Altered mental status Status: Acute Qualifiers: Altered mental status type: transient alteration of awareness Qualified Code(s): R40.4 - Transient alteration of awareness
[2021-07-26] MEDS ORDERED: XANAX PO ONE (13:51)
[2021-07-26] MEDS ORDERED: XANAX ONE (16:37)
[2021-07-26] MEDS: PRAVACHOL PO SCH (20:40)
[2021-07-27] MEDS: ACCUNEB 1.25 MG NEBULE NEB SCH (05:42)
[2021-07-27] MEDS: SOLU-Medrol 40 MG VIAL IVP SCH (06:00)
[2021-07-27 06:25] LABS: EOSINOPHILS # (AUTO) 0.1 x10^3/uL (0.0-0.2); MONOCYTES # (AUTO) 0.4 x10^3/uL (0.3-0.8)
--- NOTE | 2021-07-27 06:35 | RAD ---
HISTORYSOBSTUDYCHEST, 1 [id number]/16/2021.TECHNIQUEAP view of the chestFINDINGSCardiac and mediastinal contours are within normal limits. The lungs are hyperexpanded. Mild improvement in patchy scattered lung opacities No definite pleural effusion or pneumothorax.IMPRESSIONMild improvement in patchy scattered lung opacities consistent with improved pneumonia. Background of COPD.Electronically signed by: Jamarcus Lewis (Jul 27, 2021 06:34:06)
[2021-07-27 06:36] LABS: BASOPHILS % (AUTO) 0.4 % (0.2-1.0); EOSINOPHILS % (AUTO) 0.8 % (0.9-2.9); HEMATOCRIT 33.2 % (36.0-47.0); HEMOGLOBIN 11.5 g/dL (12.0-16.0); LYMPHOCYTES # (AUTO) 0.9 X10^3/uL (1.3-2.9); LYMPHOCYTES % (AUTO) 8.4 % (21.0-51.0); MEAN CORPUSCULAR HEMOGLOBIN 31.4 pg (27.0-34.0); MEAN CORPUSCULAR HGB CONC 34.7 g/dL (33.0-35.0); MEAN CORPUSCULAR VOLUME 90.5 fL (80.0-100.0); MEAN PLATELET VOLUME 8.5 fL (7.4-11.0); MONOCYTES % (AUTO) 3.4 % (0.0-13.0); NEUTROPHILS # (AUTO) 9.7 x10^3/uL (2.2-4.8); PLATELET COUNT 238 X10^3/uL (150.0-450.0); RED BLOOD COUNT 3.67 X10^6/uL (3.5-5.4); WHITE BLOOD COUNT 11.2 X10^3/uL (3.6-10.0)
[2021-07-27 06:42] LABS: ALBUMIN 2.7 g/dL (3.4-5.0); CALCIUM 8.9 mg/dL (8.5-10.1); CARBON DIOXIDE 29.3 mmol/L (21-32); COR CA(FOR HYPOALB) 9.9 mg/dL (8.5-10.1); CREATININE 1.15 mg/dL (0.55-1.02); TOTAL PROTEIN 6.1 g/dL (6.4-8.2)
[2021-07-27 07:19] LABS: PLATELET MORPHOLOGY COMMENT NORMAL (NORMAL)
[2021-07-27] MEDS: PULMICORT NEB TX 0.5 MG NEB SCH (08:41)
[2021-07-27] MEDS: PROzac PO SCH (09:07)
[2021-07-27] MEDS: ZESTRIL TAB 40 MG PO SCH (09:08)
[2021-07-27] MEDS: SYNTHROID 50 mcg TAB PO SCH (09:08)
[2021-07-27] MEDS: HEMOCYTE-PLUS PO SCH (09:08)
[2021-07-27] MEDS: CIPRO IV 400 MG PREMIX* 400 MG/200 ML IV.SOLN. IV SCH (09:08)
[2021-07-27] MEDS: PEPCID TAB 40 MG PO SCH (09:08)
[2021-07-27] MEDS: SINEMET (PLAIN) 25/100 MG PO SCH (09:08)
[2021-07-27] MEDS: D5W 1000 ML IV 1,000 ML IV SCH (09:09)
[2021-07-27 12:33] VITALS: BP 150/70
== END 2021-07-27 11:30 | disposition home or self-care (01) ==
LOC: ER 21:55 → MED/SURG 21:55
PROVIDERS: ADMIT Family Medicine; ATTEND Internal Medicine
DX: J12.82 Pneumonia due to coronavirus disease 2019; R26.89 Other abnormalities of gait and mobility; N39.0 Urinary tract infection, site not specified; R40.4 Transient alteration of awareness; R79.89 Other specified abnormal findings of blood chemistry; B96.1 Klebsiella pneumoniae [K. pneumoniae] as the cause of diseases classified elsewhere; Z78.1 Physical restraint status; J44.9 Chronic obstructive pulmonary disease, unspecified; I10 Essential (primary) hypertension; R79.82 Elevated C-reactive protein (CRP); U07.1 COVID-19; Z66 Do not resuscitate; K21.9 Gastro-esophageal reflux disease without esophagitis